=== PATIENT | male | born 1955 | race Caucasian/White ===

== ENCOUNTER 2018-07-30 17:15 | Emergency (ER) | payer MEDICARE, OTHER ==
[~2018-07-30] VITALS: Ht 172.7 cm; Wt 54.0 kg
[2018-07-30 19:15] LABS: BASOPHILS # (AUTO) 0.1 X10'3 (0-0.2); BASOPHILS % (AUTO) 0.9 % (0-1); EOSINOPHILS # (AUTO) 0.1 X10'3 (0-0.9); EOSINOPHILS % (AUTO) 1.4 % (0-6); HEMATOCRIT 47.9 % (42.0-52.0); HEMOGLOBIN 16.1 g/dl (14.0-17.9); LYMPHOCYTES # (AUTO) 2.3 X10'3 (1.1-4.8); LYMPHOCYTES % (AUTO) 30.8 % (21-51); MEAN CORPUSCULAR HEMOGLOBIN 32.2 PG (27.0-31.0); MEAN CORPUSCULAR HGB CONC 33.6 g/dL (33.0-36.5); MEAN CORPUSCULAR VOLUME 95.9 FL (78-98); MONOCYTES # (AUTO) 1.2 X10'3 (0-0.9); MONOCYTES % (AUTO) 15.7 % (2-12); NEUTROPHILS # (AUTO) 3.8 X10'3 (1.8-7.7); NEUTROPHILS % (AUTO) 51.2 % (42-75); PLATELET COUNT 153 X10'3 (140-440); RED BLOOD COUNT 4.99 X10'6 (4.70-6.10); RED CELL DISTRIBUTION WIDTH 14.9 % (11.5-14.5); WHITE BLOOD COUNT 7.4 X10'3 (4.5-11.0)
[2018-07-30 19:32] LABS: ALANINE AMINOTRANSFERASE 55 U/L (12-78); ALBUMIN/GLOBULIN RATIO 1.1 (1.1-1.5); ALKALINE PHOSPHATASE 94 IU/L (46-116); ANION GAP 13 (8-16); ASPARTATE AMINO TRANSFERASE 83 U/L (10-37); BILIRUBIN,TOTAL 0.9 MG/DL (0.1-1.0); BLOOD UREA NITROGEN 3 MG/DL (7-18); BUN/CREATININE RATIO 3.7 (5.4-32.0); CALCIUM 8.9 MG/DL (8.5-10.1); CHLORIDE 101 MMOL/L (99-107); CREATININE 0.81 MG/DL (0.60-1.10); GLUCOSE 88 MG/DL (70-104); INR 1.2 INR; PARTIAL THROMBOPLASTIN TIME 28 SECONDS (22-32); POTASSIUM 3.6 MMOL/L (3.5-5.1); PROTHROMBIN TIME 11.8 SECONDS (9.0-12.0); SODIUM 139 MMOL/L (135-145); TOTAL CARBON DIOXIDE 24.8 MMOL/L (24-32); TOTAL PROTEIN 7.7 G/DL (6.4-8.2); eGFR > 90 ML/MIN
[2018-07-30 20:25] LABS: TOTAL CELLS COUNTED 100
[2018-07-30 20:26] LABS: LARGE PLATELETS FEW; PLATELET ESTIMATE NORMAL
--- NOTE | 2018-07-30 20:27 | NUR ---
Patient was sent from PCP's office for Afib w/RVR, he is asymtomatic at this time. The patient is A&O x4, BU[place] and is appropriate with his daughter at bedside. His current rhythm is afibe with a controlled rate. I will continue to monitor.
[2018-07-30] MEDS ORDERED: aspirin 325mg tablet PO STA (21:23)
[2018-07-30 21:25] VITALS: BP 133/81
== END 2018-07-30 21:31 | disposition home or self-care (01) ==
LOC: ER 17:15
DX: I48.91 Unspecified atrial fibrillation (principal); I50.9 Heart failure, unspecified; Z90.49 Acquired absence of other specified parts of digestive tract
CPT/HCPCS: 36415; 71045; 80053; 84484; 85025; 85610; 85730; 93005; 99284

== ENCOUNTER 2018-09-27 14:33 | Inpatient (IN) | payer MEDICARE, OTHER | END 2018-10-01 12:50 | disposition home or self-care (01) | LOC: ER 14:33 → PCU 3S 09-28 12:50 → ED HOLD 20:59 | PROC: 0W3P8ZZ Control Bleeding in Gastrointestinal Tract, Via Natural or Artificial Opening Endoscopic (ICD-10-PCS; principal; ~2018-09-27) | DX: K92.2 Gastrointestinal hemorrhage, unspecified (principal); D62 Acute posthemorrhagic anemia; I48.91 Unspecified atrial fibrillation ==

== ENCOUNTER 2020-07-07 18:12 | Emergency (ER) | payer MEDICARE ==
[~2020-07-07] VITALS: Ht 170.2 cm; Wt 63.5 kg
[~2020-07-07 18:12] MED LIST: ASCO500C18 PO; FOLI1TAB16 PO; METO-395 PO; MULT-933 PO; PANT40TA54 PO; thiamine tablet PO
--- NOTE | 2020-07-07 18:27 | NUR ---
DR PHELAN NOTIFIED OF PT NECK PAIN AND LOC WITH FALL. PT PLACED IN C COLLAR
[2020-07-07] MEDS ORDERED: LIDOcaine 1% W/epiNEPHrine 1:100,000 20ml vial SQ ONE (19:35)
[2020-07-07] MEDS ORDERED: TETanus/Pertussis (Acell)/Diphther VAC/PF (Tdap-Adult) 0.5ml syringe IMVAC ONE (19:40)
[2020-07-07] MEDS ORDERED: cephalexin 250mg capsule PO ONE (20:30)
[2020-07-07] MEDS ORDERED: HYDROcodone/acetaminophen 10/325mg tab PO ONE (20:30)
[2020-07-07] MEDS ORDERED: CEPH-572 PO (20:43)
[2020-07-07] MEDS ORDERED: HYDR-4353 PO (20:43)
[2020-07-07 21:15] VITALS: BP 158/77
== END 2020-07-07 21:17 | disposition home or self-care (01) ==
LOC: ER 18:12
DX: S01.81XA Laceration without foreign body of other part of head, initial encounter (principal); S00.431A Contusion of right ear, initial encounter; I50.9 Heart failure, unspecified; Z60.2 Problems related to living alone; Z90.49 Acquired absence of other specified parts of digestive tract; Z79.899 Other long term (current) drug therapy; W18.39XA Other fall on same level, initial encounter; Y93.89 Activity, other specified; Y92.89 Other specified places as the place of occurrence of the external cause; Y99.8 Other external cause status
CPT/HCPCS: 12002; 69000; 70450; 72125; 90471; 90715; 99285

== ENCOUNTER 2020-07-24 21:43 | Emergency (ER) | payer MEDICARE ==
[~2020-07-24] VITALS: Ht 170.2 cm; Wt 63.6 kg
[~2020-07-24 21:43] MED LIST changes: +CEPH-572 PO; +HYDR-4353 PO
--- NOTE | 2020-07-24 22:06 | NUR ---
breaking primary RN; will cont to monitor
[2020-07-24] MEDS ORDERED: ondansetron/PF 4mg/2ml inj IV ONE (22:15)
[2020-07-24 22:31] LABS: BASOPHILS # (AUTO) 0.1 X10'3 (0-0.2); BASOPHILS % (AUTO) 1.1 % (0-1); EOSINOPHILS # (AUTO) 0.1 X10'3 (0-0.9); EOSINOPHILS % (AUTO) 0.7 % (0-6); HEMATOCRIT 44.1 % (42.0-52.0); LYMPHOCYTES # (AUTO) 2.8 X10'3 (1.1-4.8); LYMPHOCYTES % (AUTO) 25.3 % (21-51); MEAN CORPUSCULAR HEMOGLOBIN 32.5 PG (27.0-31.0); MEAN CORPUSCULAR VOLUME 95.5 FL (78-98); MEAN PLATELET VOLUME 9.5 FL (7.4-10.4); MONOCYTES # (AUTO) 1.5 X10'3 (0-0.9); MONOCYTES % (AUTO) 13.3 % (2-12); NEUTROPHILS # (AUTO) 6.5 X10'3 (1.8-7.7); NEUTROPHILS % (AUTO) 59.6 % (42-75); PLATELET COUNT 267 X10'3 (140-440); RED BLOOD COUNT 4.61 X10'6 (4.70-6.10); RED CELL DISTRIBUTION WIDTH 13.1 % (11.5-14.5); WHITE BLOOD COUNT 10.9 X10'3 (4.5-11.0)
[2020-07-24] MEDS ORDERED: morphine 4 MG/ML inj SYRINge IV ONE (22:35)
--- NOTE | 2020-07-24 22:40 | NUR ---
PT TO CT. JUST GIVEN MSIV 4 MG . PT WITH 10 OUT OF 10 PAIN TO HIS LLQ
[2020-07-24 22:44] LABS: ALANINE AMINOTRANSFERASE 21 U/L (12-78); ALBUMIN 3.7 G/DL (3.4-5.0); ALBUMIN/GLOBULIN RATIO 0.8 (1.1-1.5); ALKALINE PHOSPHATASE 155 IU/L (46-116); ANION GAP 13 (8-16); ASPARTATE AMINO TRANSFERASE 39 U/L (10-37); BILIRUBIN,TOTAL 0.9 MG/DL (0.1-1.0); BLOOD UREA NITROGEN 11 MG/DL (7-18); BUN/CREATININE RATIO 8.9 (5.4-32.0); CALCIUM 8.9 MG/DL (8.5-10.1); CHLORIDE 99 MMOL/L (99-107); CREATININE 1.24 MG/DL (0.60-1.10); GLUCOSE 129 MG/DL (70-104); LIPASE 89 U/L (73-393); POTASSIUM 3.8 MMOL/L (3.5-5.1); SODIUM 136 MMOL/L (135-145); TOTAL CARBON DIOXIDE 24.3 MMOL/L (24-32); TOTAL PROTEIN 8.2 G/DL (6.4-8.2); eGFR 58 ML/MIN
[2020-07-24 23:02] LABS: CLARITY,URINE CLEAR (Clear); COLOR,URINE YELLOW (Yellow); GLUCOSE, URINE NEGATIVE (Neg); KETONES,URINE TRACE mg/dl (Neg); LEUKOCYTE ESTERASE ,URINE NEGATIVE (Neg); NITRITES, URINE NEGATIVE (Neg); OCCULT BLOOD,URINE NEGATIVE (Neg); PH,URINE 7.5 (4.8-8.0); PROTEIN,URINE NEGATIVE (Neg)
[2020-07-24 23:08] LABS: UA COLLECTION TYPE CLN CATCH MIDSTREAM
[2020-07-24] MEDS ORDERED: ketorolac trometh. 30mg/ml inj. IV ONE (23:15)
[2020-07-25 00:14] VITALS: BP 155/96
[2020-07-25] MEDS ORDERED: NO HOME MEDS (12:25)
== END 2020-07-25 00:15 | disposition home or self-care (01) ==
LOC: ER 21:43
DX: R10.32 Left lower quadrant pain (principal); N28.1 Cyst of kidney, acquired; R11.10 Vomiting, unspecified; Z90.89 Acquired absence of other organs; Z90.49 Acquired absence of other specified parts of digestive tract; Z72.89 Other problems related to lifestyle; Z79.2 Long term (current) use of antibiotics; Z79.899 Other long term (current) drug therapy
CPT/HCPCS: 36415; 74176; 80053; 81003; 83690; 85025; 96374; 96375; 99284; J1885; J2270; J2405

== ENCOUNTER 2021-01-03 20:49 | Emergency (ER) | payer MEDICARE ==
[~2021-01-03] VITALS: Ht 172.7 cm; Wt 63.6 kg
[~2021-01-03 20:49] MED LIST changes: +APIX5TAB3 PO; -ASCO500C18 PO; -CEPH-572 PO; -FOLI1TAB16 PO; -HYDR-4353 PO; -METO-395 PO; +MULT-25 PO; -MULT-933 PO; +PANT-47 PO; -PANT40TA54 PO; +folic acid tablet PO
[2021-01-03 21:27] LABS: BASOPHILS # (AUTO) 0.1 X10'3 (0-0.2); BASOPHILS % (AUTO) 1.3 % (0-1); EOSINOPHILS # (AUTO) 0.2 X10'3 (0-0.9); EOSINOPHILS % (AUTO) 2.7 % (0-6); HEMATOCRIT 34.2 % (42.0-52.0); HEMOGLOBIN 11.3 g/dl (14.0-17.9); LYMPHOCYTES # (AUTO) 2.1 X10'3 (1.1-4.8); LYMPHOCYTES % (AUTO) 33.9 % (21-51); MEAN CORPUSCULAR HEMOGLOBIN 29.3 PG (27.0-31.0); MEAN CORPUSCULAR VOLUME 88.8 FL (78-98); MEAN PLATELET VOLUME 9.9 FL (7.4-10.4); MONOCYTES # (AUTO) 1.3 X10'3 (0-0.9); MONOCYTES % (AUTO) 20.1 % (2-12); NEUTROPHILS # (AUTO) 2.6 X10'3 (1.8-7.7); PLATELET COUNT 100 X10'3 (140-440); RED BLOOD COUNT 3.85 X10'6 (4.70-6.10); RED CELL DISTRIBUTION WIDTH 17.4 % (11.5-14.5); WHITE BLOOD COUNT 6.3 X10'3 (4.5-11.0)
[2021-01-03 21:42] LABS: ALANINE AMINOTRANSFERASE 31 U/L (12-78); ALBUMIN 3.6 G/DL (3.4-5.0); ALKALINE PHOSPHATASE 140 IU/L (46-116); ANION GAP 11 (8-16); ASPARTATE AMINO TRANSFERASE 60 U/L (10-37); BILIRUBIN,TOTAL 1.4 MG/DL (0.1-1.0); BLOOD UREA NITROGEN 8 MG/DL (7-18); CALCIUM 8.7 MG/DL (8.5-10.1); CHLORIDE 94 MMOL/L (99-107); CREATININE 1.33 MG/DL (0.60-1.10); GLUCOSE 90 MG/DL (70-104); POTASSIUM 3.6 MMOL/L (3.5-5.1); SODIUM 128 MMOL/L (135-145); TOTAL CARBON DIOXIDE 22.6 MMOL/L (24-32); TOTAL PROTEIN 7.2 G/DL (6.4-8.2); eGFR 54 ML/MIN
[2021-01-03 21:44] LABS: ETHANOL 0.059 GM/DL (0.0-0.010)
[2021-01-03 22:07] VITALS: BP 130/80
[2021-01-03 22:37] LABS: ANISOCYTOSIS 1+; PLATELET ESTIMATE DECREASED; TOTAL CELLS COUNTED 100
[2021-01-03 22:38] LABS: LARGE PLATELETS FEW; POIKILOCYTOSIS FEW
[2021-01-03 22:39] LABS: SMUDGE CELLS 1+
--- NOTE | 2021-01-03 23:17 | NUR ---
urinal given to pt. Unable to provide urine at this time
[2021-01-04 00:49] LABS: URINE AMPHETAMINE SCREEN NEGATIVE (Neg); URINE BARBITUATE SCREEN NEGATIVE (Neg); URINE BENZODIAZEPINES SCREEN NEGATIVE (Neg); URINE CANNABINOID SCREEN NEGATIVE (Neg); URINE COCAINE SCREEN NEGATIVE (Neg); URINE METHADONE SCREEN NEGATIVE (Neg); URINE OPIATE SCREEN NEGATIVE (Neg); URINE PHENCYCLIDINE SCREEN NEGATIVE (Neg)
--- NOTE | 2021-01-04 01:57 | NUR ---
PT AWAKE RESTING PEACFULLY ON RIGHT SIDE RESP EVEN AND UNLABORED . PT VOIDING OUT PUT 500 ML OFFERED PT 2 WARM BLANKETS . PT POLITE
--- NOTE | 2021-01-04 06:33 | NUR ---
pt using urinal at this time independtly ,no distress noted.will cont to monitor ,sitter chadwick outside the room.
--- NOTE | 2021-01-04 07:36 | NUR ---
pt sleeping in lft lateral position no ditress noted will cont to monitor.
--- NOTE | 2021-01-04 09:50 | NUR ---
PT AMBULATED FROM ROOM 8 TO BED 26. PT BEING OREINTATED TO SURROUNDINGS AND GIVEN WARM BLANKETS.
--- NOTE | 2021-01-04 09:54 | NUR ---
PT MOVED FROM ER BED 8 TO OVERFLOW BED 26.
--- NOTE | 2021-01-04 10:24 | NUR ---
ANGELES SPARKS AT BEDSIDE SPEAKING WITH PT.
--- NOTE | 2021-01-04 11:07 | NUR ---
GAEL CAGLE'S DAUGHTER'S PHONE NUMBER IS [phone]
--- NOTE | 2021-01-04 11:30 | NUR ---
PT INQUIRED IF WE COULD CALL HIS DAUGHTER AT HER WORK. OBTAINED INFO OF WHERE SHE WORKS WAS ABLE TO GET A HOLD OF PTS DAUGHTER GURJIT PEÑALOZA AT HER WORK. [facility] WORKER TO GIVE DAUGHTER A CALL AFTER VERBAL PERMISSION GIVEN BY GURJIT.
--- NOTE | 2021-01-04 12:25 | NUR ---
PER [facility] WORKER [place] PT BEING DC'D AND HIS DAUGHTER WILL BE PICKING HIM UP IN NEXT "COUPLE" OF HOURS DAUGHTER CURRENTLY AT WORK
--- NOTE | 2021-01-04 14:00 | NUR ---
CALLED PTS DAUGHTER, GURJIT CURRENTLY NOT ANSWERING.
--- NOTE | 2021-01-04 14:11 | NUR ---
PTS DAUGHTER CALLED AND REPORTS SHE WILL BE LEAVING WORKIN AND PICKING UP PT "SHORTLY"
== END 2021-01-04 15:14 | disposition home or self-care (01) ==
LOC: ER 20:49
DX: F10.129 Alcohol abuse with intoxication, unspecified (principal); F79 Unspecified intellectual disabilities; I50.9 Heart failure, unspecified; N18.9 Chronic kidney disease, unspecified; Z90.49 Acquired absence of other specified parts of digestive tract; Z72.89 Other problems related to lifestyle; Z79.899 Other long term (current) drug therapy; Y90.2 Blood alcohol level of 40-59 mg/100 ml; R40.4 Transient alteration of awareness
CPT/HCPCS: 36415; 70450; 80053; 80305; 80320; 84443; 85007; 85025; 99285

== ENCOUNTER 2021-09-20 13:43 | Emergency (ER) | payer MEDICARE ==
[~2021-09-20] VITALS: Ht 172.7 cm; Wt 65.8 kg
[~2021-09-20 13:43] MED LIST changes: +CARV6.253 PO; -MULT-25 PO; -PANT-47 PO; -folic acid tablet PO; -thiamine tablet PO
[2021-09-20 15:08] LABS: BASOPHILS # (AUTO) 0.1 X10'3 (0-0.2); BASOPHILS % (AUTO) 1.2 % (0-1); EOSINOPHILS # (AUTO) 0.2 X10'3 (0-0.9); EOSINOPHILS % (AUTO) 2.3 % (0-6); HEMATOCRIT 32.5 % (42.0-52.0); HEMOGLOBIN 10.8 g/dl (14.0-17.9); LYMPHOCYTES # (AUTO) 1.3 X10'3 (1.1-4.8); LYMPHOCYTES % (AUTO) 17.1 % (21-51); MEAN CORPUSCULAR HEMOGLOBIN 29.3 PG (27.0-31.0); MEAN CORPUSCULAR HGB CONC 33.3 g/dL (33.0-36.5); MEAN PLATELET VOLUME 9.6 FL (7.4-10.4); MONOCYTES # (AUTO) 2.3 X10'3 (0-0.9); MONOCYTES % (AUTO) 31.6 % (2-12); NEUTROPHILS # (AUTO) 3.6 X10'3 (1.8-7.7); NEUTROPHILS % (AUTO) 47.8 % (42-75); PLATELET COUNT 190 X10'3 (140-440); RED CELL DISTRIBUTION WIDTH 17.3 % (11.5-14.5); WHITE BLOOD COUNT 7.4 X10'3 (4.5-11.0)
[2021-09-20 15:18] LABS: ALANINE AMINOTRANSFERASE 32 U/L (12-78); ALBUMIN 2.8 G/DL (3.4-5.0); ALBUMIN/GLOBULIN RATIO 0.7 (1.1-1.5); ALKALINE PHOSPHATASE 121 IU/L (46-116); ANION GAP 12 (8-16); ASPARTATE AMINO TRANSFERASE 69 U/L (10-37); BILIRUBIN,TOTAL 0.9 MG/DL (0.1-1.0); BLOOD UREA NITROGEN 9 MG/DL (7-18); BUN/CREATININE RATIO 9.7 (5.4-32.0); CALCIUM 8.3 MG/DL (8.5-10.1); CHLORIDE 103 MMOL/L (99-107); CREATININE 0.93 MG/DL (0.60-1.10); GLUCOSE 66 MG/DL (70-104); POTASSIUM 3.4 MMOL/L (3.5-5.1); SODIUM 139 MMOL/L (135-145); TOTAL CARBON DIOXIDE 24.5 MMOL/L (24-32); TOTAL PROTEIN 6.6 G/DL (6.4-8.2); eGFR 81 ML/MIN
[2021-09-20 15:28] LABS: TOTAL CELLS COUNTED 100
[2021-09-20 15:29] LABS: ANISOCYTOSIS 1+; LARGE PLATELETS FEW; PLATELET ESTIMATE NORMAL
[2021-09-20] MEDS ORDERED: potassium Cl 20 mEq SR tablet PO ONE (17:00)
[2021-09-20] MEDS ORDERED: furosemide 20MG tablet PO ONE (17:00)
[2021-09-20 18:27] VITALS: BP 124/79
== END 2021-09-20 18:46 | disposition home or self-care (01) ==
LOC: ER 13:43
DX: R60.0 Localized edema (principal); I50.9 Heart failure, unspecified; I48.91 Unspecified atrial fibrillation; K70.30 Alcoholic cirrhosis of liver without ascites; N18.9 Chronic kidney disease, unspecified; Z90.49 Acquired absence of other specified parts of digestive tract; Z72.89 Other problems related to lifestyle; Z79.899 Other long term (current) drug therapy; Z79.01 Long term (current) use of anticoagulants
CPT/HCPCS: 36415; 71045; 80053; 83880; 84484; 85007; 85025; 93005; 99285

== ENCOUNTER 2022-01-15 16:05 | Emergency (ER) | payer MEDICARE ==
[~2022-01-15] VITALS: Ht 172.7 cm; Wt 51.8 kg
[2022-01-15] MEDS ORDERED: normal saline 1000ML IV soln IV ONE (16:50)
[2022-01-15 17:03] LABS: BASOPHILS # (AUTO) 0.1 X10'3 (0-0.2); BASOPHILS % (AUTO) 1.2 % (0-1); EOSINOPHILS # (AUTO) 0.1 X10'3 (0-0.9); EOSINOPHILS % (AUTO) 0.8 % (0-6); HEMATOCRIT 33.6 % (42.0-52.0); LYMPHOCYTES # (AUTO) 2.2 X10'3 (1.1-4.8); LYMPHOCYTES % (AUTO) 31.4 % (21-51); MEAN CORPUSCULAR HEMOGLOBIN 25.4 PG (27.0-31.0); MEAN CORPUSCULAR HGB CONC 32.8 g/dL (33.0-36.5); MEAN CORPUSCULAR VOLUME 77.5 FL (78-98); MEAN PLATELET VOLUME 9.1 FL (7.4-10.4); MONOCYTES # (AUTO) 1.3 X10'3 (0-0.9); MONOCYTES % (AUTO) 19.5 % (2-12); NEUTROPHILS # (AUTO) 3.2 X10'3 (1.8-7.7); NEUTROPHILS % (AUTO) 47.1 % (42-75); PLATELET COUNT 240 X10'3 (140-440); RED BLOOD COUNT 4.33 X10'6 (4.70-6.10); RED CELL DISTRIBUTION WIDTH 17.8 % (11.5-14.5); WHITE BLOOD COUNT 6.9 X10'3 (4.5-11.0)
[2022-01-15 17:17] LABS: ALANINE AMINOTRANSFERASE 30 U/L (12-78); ALBUMIN 3.4 G/DL (3.4-5.0); ALBUMIN/GLOBULIN RATIO 0.8 (1.1-1.5); ALKALINE PHOSPHATASE 124 IU/L (46-116); ANION GAP 16 (8-16); ASPARTATE AMINO TRANSFERASE 68 U/L (10-37); BILIRUBIN,TOTAL 1.8 MG/DL (0.1-1.0); BLOOD UREA NITROGEN 10 MG/DL (7-18); BUN/CREATININE RATIO 8.1 (5.4-32.0); CALCIUM 8.9 MG/DL (8.5-10.1); CHLORIDE 91 MMOL/L (99-107); CREATININE 1.23 MG/DL (0.60-1.10); ETHANOL < 0.010 GM/DL (0.0-0.010); GLUCOSE 90 MG/DL (70-104); SODIUM 133 MMOL/L (135-145); TOTAL CARBON DIOXIDE 26.5 MMOL/L (24-32); TOTAL PROTEIN 7.6 G/DL (6.4-8.2); eGFR 59 ML/MIN
[2022-01-15 17:21] LABS: POTASSIUM 2.7 MMOL/L (3.5-5.1)
--- NOTE | 2022-01-15 17:21 | NUR ---
k 2.7 reported to er
[2022-01-15] MEDS ORDERED: POTASSIUM BICARB 20meq eff tab 20 MEQ TABLET.EFF PO ONE (17:25)
[2022-01-15 17:26] LABS: APTT 30 SECONDS (22-32)
[2022-01-15 17:27] LABS: ANISOCYTOSIS 1+; MICROCYTOSIS 1+; PLATELET ESTIMATE NORMAL; POIKILOCYTOSIS FEW; POLYCHROMASIA FEW; TARGET CELLS 1+
[2022-01-15 17:28] LABS: ELLIPTOCYTES FEW
--- NOTE | 2022-01-15 18:14 | NUR ---
Recieved report from Damaris, noted laceration to left eye without active bleeding.
--- NOTE | 2022-01-15 18:34 | NUR ---
Report given to Kristi.
[2022-01-15] MEDS ORDERED: potassium Cl 10 mEq/100mL bag IV ONE (20:10)
[2022-01-15] MEDS ORDERED: CefTRIAXone 2gm/D5W 50ml BAG 50 ML IV ONE (20:10)
[2022-01-15] MEDS ORDERED: ondansetron/PF 4mg/2ml inj IV ONE (20:10)
[2022-01-15] MEDS ORDERED: folic acid 1mg/0.2ml inj IV ONE (21:55)
[2022-01-15] MEDS ORDERED: thiamine 100mg/ml 2ml inj. IV ONE (21:55)
[2022-01-15] MEDS ORDERED: normal saline 1000ML IV soln IVB ONE (21:55)
[2022-01-15 22:45] VITALS: BP 117/66
== END 2022-01-15 23:19 | disposition home or self-care (01) ==
LOC: ER 16:07
DX: S09.90XA Unspecified injury of head, initial encounter (principal); F10.20 Alcohol dependence, uncomplicated; T51.0X1A Toxic effect of ethanol, accidental (unintentional), initial encounter; Y90.9 Presence of alcohol in blood, level not specified; I95.9 Hypotension, unspecified; R19.7 Diarrhea, unspecified; E87.1 Hypo-osmolality and hyponatremia; E86.0 Dehydration; W19.XXXA Unspecified fall, initial encounter; Y93.89 Activity, other specified; Y92.89 Other specified places as the place of occurrence of the external cause; Y99.8 Other external cause status
CPT/HCPCS: 36415; 70450; 72125; 80053; 80320; 83605; 84145; 85008; 85025; 85610; 85730; 87040; 93005; 96361; 96365; 96375; 99285; J0696; J2405; J3411; J3480; J3490; J7030; 80305

== ENCOUNTER 2022-01-18 09:31 | Emergency (ER) | payer MEDICARE ==
[~2022-01-18] VITALS: Ht 172.7 cm; Wt 54.5 kg
--- NOTE | 2022-01-18 09:48 | NUR ---
levi fonseca made aware of pt triage
[2022-01-18] MEDS ORDERED: thiamine 100mg/ml 2ml inj. IV ONE (10:00)
[2022-01-18] MEDS ORDERED: normal saline 1000ML IV soln IVB ONE (10:00)
[2022-01-18 10:36] LABS: BASOPHILS # (AUTO) 0.1 X10'3 (0-0.2); BASOPHILS % (AUTO) 1.2 % (0-1); EOSINOPHILS # (AUTO) 0.1 X10'3 (0-0.9); EOSINOPHILS % (AUTO) 1.6 % (0-6); HEMATOCRIT 31.8 % (42.0-52.0); HEMOGLOBIN 10.2 g/dl (14.0-17.9); LYMPHOCYTES # (AUTO) 1.5 X10'3 (1.1-4.8); LYMPHOCYTES % (AUTO) 22.4 % (21-51); MEAN CORPUSCULAR HEMOGLOBIN 25.2 PG (27.0-31.0); MEAN CORPUSCULAR HGB CONC 32.2 g/dL (33.0-36.5); MEAN CORPUSCULAR VOLUME 78.2 FL (78-98); MONOCYTES # (AUTO) 1.2 X10'3 (0-0.9); MONOCYTES % (AUTO) 18.5 % (2-12); NEUTROPHILS # (AUTO) 3.8 X10'3 (1.8-7.7); NEUTROPHILS % (AUTO) 56.3 % (42-75); PLATELET COUNT 228 X10'3 (140-440); RED BLOOD COUNT 4.07 X10'6 (4.70-6.10); WHITE BLOOD COUNT 6.7 X10'3 (4.5-11.0)
[2022-01-18 10:51] LABS: BILIRUBIN,TOTAL 1.2 MG/DL (0.1-1.0)
[2022-01-18 10:55] LABS: LACTIC SEPSIS 2.3 MMOL/L (0.4-2.0)
[2022-01-18 11:00] LABS: ALANINE AMINOTRANSFERASE 26 U/L (12-78); ALBUMIN 2.7 G/DL (3.4-5.0); ALBUMIN/GLOBULIN RATIO 0.7 (1.1-1.5); ALKALINE PHOSPHATASE 116 IU/L (46-116); ANION GAP 13 (8-16); ASPARTATE AMINO TRANSFERASE 61 U/L (10-37); BLOOD UREA NITROGEN 5 MG/DL (7-18); BUN/CREATININE RATIO 4.2 (5.4-32.0); CHLORIDE 96 MMOL/L (99-107); CREATININE 1.18 MG/DL (0.60-1.10); ETHANOL < 0.010 GM/DL (0.0-0.010); GLUCOSE 97 MG/DL (70-104); SODIUM 135 MMOL/L (135-145); TOTAL CARBON DIOXIDE 25.8 MMOL/L (24-32); TOTAL PROTEIN 6.6 G/DL (6.4-8.2); eGFR 61 ML/MIN
[2022-01-18 11:05] LABS: POTASSIUM 2.9 MMOL/L (3.5-5.1)
[2022-01-18 11:25] LABS: ANISOCYTOSIS 1+; MICROCYTOSIS 1+; PLATELET ESTIMATE NORMAL; TOTAL CELLS COUNTED 100
[2022-01-18 11:26] LABS: LARGE PLATELETS FEW; TARGET CELLS FEW
[2022-01-18 11:27] LABS: SMUDGE CELLS 1+
[2022-01-18] MEDS ORDERED: potassium Cl 20 mEq SR tablet PO ONE (11:30)
[2022-01-18] MEDS ORDERED: iohexol 350MG/ML 100ml bottle IV ONE (11:34)
[2022-01-18 13:30] VITALS: BP 106/61
== END 2022-01-18 14:16 | disposition home or self-care (01) ==
LOC: ER 09:32
DX: S60.222A Contusion of left hand, initial encounter (principal); S60.221A Contusion of right hand, initial encounter; M54.9 Dorsalgia, unspecified; I13.0 Hypertensive heart and chronic kidney disease with heart failure and stage 1 through stage 4 chronic kidney disease, or unspecified chronic kidney disease; N18.9 Chronic kidney disease, unspecified; Z87.19 Personal history of other diseases of the digestive system; Z79.899 Other long term (current) drug therapy; W18.39XA Other fall on same level, initial encounter; Y93.89 Activity, other specified; Y92.89 Other specified places as the place of occurrence of the external cause; Y99.8 Other external cause status
CPT/HCPCS: 36415; 70450; 71045; 71260; 73130; 74177; 80053; 80320; 82140; 83605; 83735; 84484; 85007; 85025; 87040; 93005; 96361; 96374; 99285; J3411; J3490; J7030; Q9967

== ENCOUNTER 2022-01-20 09:38 | Emergency (ER) | payer MEDICARE ==
[~2022-01-20] VITALS: Ht 172.7 cm; Wt 59.1 kg
[2022-01-20 09:39] VITALS: BP 81/48
[2022-01-20 10:26] LABS: ALANINE AMINOTRANSFERASE 22 U/L (12-78); ALBUMIN 2.7 G/DL (3.4-5.0); ALBUMIN/GLOBULIN RATIO 0.7 (1.1-1.5); ALKALINE PHOSPHATASE 119 IU/L (46-116); ANION GAP 14 (8-16); ASPARTATE AMINO TRANSFERASE 54 U/L (10-37); BILIRUBIN,TOTAL 1.3 MG/DL (0.1-1.0); BLOOD UREA NITROGEN 5 MG/DL (7-18); BUN/CREATININE RATIO 4.5 (5.4-32.0); CALCIUM 7.9 MG/DL (8.5-10.1); CHLORIDE 100 MMOL/L (99-107); CREATININE 1.12 MG/DL (0.60-1.10); GLUCOSE 94 MG/DL (70-104); POTASSIUM 3.1 MMOL/L (3.5-5.1); SODIUM 137 MMOL/L (135-145); TOTAL CARBON DIOXIDE 23.1 MMOL/L (24-32); TOTAL PROTEIN 6.7 G/DL (6.4-8.2); eGFR 65 ML/MIN
[2022-01-20] MEDS ORDERED: normal saline 1000ml 1,000 ML IV ONE (11:00)
[2022-01-20] MEDS ORDERED: HYDROcodone/acetaminophen 10/325mg tab PO ONE (11:15)
[2022-01-20] MEDS ORDERED: potassium Cl 20 mEq SR tablet PO ONE (11:15)
[2022-01-20 11:23] LABS: BASOPHILS # (AUTO) 0.2 X10'3 (0-0.2); BASOPHILS % (AUTO) 2.7 % (0-1); EOSINOPHILS # (AUTO) 0.3 X10'3 (0-0.9); EOSINOPHILS % (AUTO) 4.2 % (0-6); HEMATOCRIT 30.3 % (42.0-52.0); HEMOGLOBIN 9.7 g/dl (14.0-17.9); LYMPHOCYTES # (AUTO) 1.4 X10'3 (1.1-4.8); MEAN CORPUSCULAR HEMOGLOBIN 25.3 PG (27.0-31.0); MEAN CORPUSCULAR VOLUME 79.2 FL (78-98); MEAN PLATELET VOLUME 8.9 FL (7.4-10.4); MONOCYTES # (AUTO) 1.1 X10'3 (0-0.9); MONOCYTES % (AUTO) 17.5 % (2-12); NEUTROPHILS # (AUTO) 3.4 X10'3 (1.8-7.7); NEUTROPHILS % (AUTO) 53.6 % (42-75); PLATELET COUNT 193 X10'3 (140-440); RED BLOOD COUNT 3.83 X10'6 (4.70-6.10); RED CELL DISTRIBUTION WIDTH 18.3 % (11.5-14.5); WHITE BLOOD COUNT 6.4 X10'3 (4.5-11.0)
[2022-01-20 11:34] LABS: CLARITY,URINE CLEAR (Clear); COLOR,URINE YELLOW (Yellow); GLUCOSE, URINE 100 mg/dl (Neg); KETONES,URINE 40 mg/dl (Neg); LEUKOCYTE ESTERASE ,URINE NEGATIVE (Neg); NITRITES, URINE NEGATIVE (Neg); OCCULT BLOOD,URINE NEGATIVE (Neg); PROTEIN,URINE NEGATIVE (Neg)
[2022-01-20 11:35] LABS: UA COLLECTION TYPE NON-SPECIFIED
[2022-01-20 11:37] LABS: MAGNESIUM 1.3 MG/DL (1.5-2.4)
[2022-01-20 11:43] LABS: PLATELET ESTIMATE NORMAL; TOTAL CELLS COUNTED 100
[2022-01-20 11:44] LABS: ANISOCYTOSIS 1+; MICROCYTOSIS 1+; TARGET CELLS FEW
[2022-01-20 11:45] LABS: ELLIPTOCYTES FEW; SMUDGE CELLS 1+
[2022-01-20 11:47] LABS: HYPERSEGMENTED NEUTROPHILS FEW
[2022-01-20] MEDS ORDERED: acetaminophen 325mg tablet PO ONE (12:50)
[2022-01-20] MEDS ORDERED: LIDO1ADH58 TOP (16:42)
== END 2022-01-20 14:36 | disposition home or self-care (01) ==
LOC: ER 09:39
DX: S60.221D Contusion of right hand, subsequent encounter (principal); I11.0 Hypertensive heart disease with heart failure; I13.0 Hypertensive heart and chronic kidney disease with heart failure and stage 1 through stage 4 chronic kidney disease, or unspecified chronic kidney disease; N18.9 Chronic kidney disease, unspecified; Z87.19 Personal history of other diseases of the digestive system; Y92.89 Other specified places as the place of occurrence of the external cause; W19.XXXD Unspecified fall, subsequent encounter; Z79.899 Other long term (current) drug therapy
CPT/HCPCS: 36415; 71045; 80053; 81003; 83605; 83735; 84145; 85007; 85025; 87040; 87077; 87186; J7030

== ENCOUNTER 2022-01-20 15:58 | Emergency (ER) | payer MEDICARE ==
[~2022-01-20] VITALS: Ht 172.7 cm; Wt 59.1 kg
[2022-01-20 16:17] VITALS: BP 98/50
[2022-01-20] MEDS ORDERED: HYDROcodone/acetaminophen 5mg/325mg tablet PO ONE (16:35)
[2022-01-20] MEDS ORDERED: LIDOcaine 5% patch TP STA (16:35)
[2022-01-20] MEDS ORDERED: LIDO1ADH58 TOP (16:42)
== END 2022-01-20 18:16 | disposition home or self-care (01) ==
LOC: ER 15:59
DX: M54.59 Other low back pain (principal); I13.2 Hypertensive heart and chronic kidney disease with heart failure and with stage 5 chronic kidney disease, or end stage renal disease; N18.6 End stage renal disease; I50.9 Heart failure, unspecified; Z90.49 Acquired absence of other specified parts of digestive tract; Z79.899 Other long term (current) drug therapy
CPT/HCPCS: 99284

== ENCOUNTER 2022-01-21 13:02 | Emergency (ER) | payer MEDICARE ==
[~2022-01-21] VITALS: Ht 172.7 cm; Wt 59.0 kg
[~2022-01-21 13:02] MED LIST changes: +LIDO1ADH58 TOP
--- NOTE | 2022-01-21 13:15 | NUR ---
C COLLAR PLACED D/T NECK PAIN S/P FALL.
[2022-01-21 15:50] VITALS: BP 114/65
--- NOTE | 2022-01-21 17:12 | NUR ---
Spoke to Melissa/child, gave her an update regarding patient's dc instructions and that pt could benefit from SS worker. Daughter said pt has appt with Dr. Quevedo next week and will accompany pt to his appt. Correct address given to registration[id number] [id number].
[2022-01-22] MEDS ORDERED: FURO20TA4 PO (00:04)
[2022-01-22] MEDS ORDERED: NALT50TA PO (00:04)
== END 2022-01-21 15:46 | disposition home or self-care (01) ==
LOC: ER 13:03
DX: S30.1XXA Contusion of abdominal wall, initial encounter (principal); S60.512A Abrasion of left hand, initial encounter; S60.511A Abrasion of right hand, initial encounter; S80.212A Abrasion, left knee, initial encounter; S80.211A Abrasion, right knee, initial encounter; M54.2 Cervicalgia; R41.82 Altered mental status, unspecified; R00.1 Bradycardia, unspecified; W18.39XA Other fall on same level, initial encounter; Y93.89 Activity, other specified; Y92.89 Other specified places as the place of occurrence of the external cause; Y99.8 Other external cause status
CPT/HCPCS: 70450; 72125

== ENCOUNTER 2022-01-21 18:08 | Inpatient (IN) | payer MEDICARE ==
[~2022-01-21] VITALS: Ht 172.7 cm; Wt 59.0 kg
[2022-01-21] MEDS ORDERED: thiamine 100mg/ml 2ml inj. IV ONE (19:45)
[2022-01-21] MEDS ORDERED: normal saline 1000ML IV soln IVB ONE (19:45)
[2022-01-21 20:29] LABS: BASOPHILS # (AUTO) 0.1 X10'3 (0-0.2); BASOPHILS % (AUTO) 1.5 % (0-1); EOSINOPHILS # (AUTO) 0.2 X10'3 (0-0.9); EOSINOPHILS % (AUTO) 3.4 % (0-6); HEMATOCRIT 27.2 % (42.0-52.0); HEMOGLOBIN 8.8 g/dl (14.0-17.9); LYMPHOCYTES % (AUTO) 28.5 % (21-51); MEAN CORPUSCULAR HEMOGLOBIN 25.2 PG (27.0-31.0); MEAN CORPUSCULAR HGB CONC 32.2 g/dL (33.0-36.5); MEAN CORPUSCULAR VOLUME 78.3 FL (78-98); MEAN PLATELET VOLUME 8.6 FL (7.4-10.4); MONOCYTES # (AUTO) 1.4 X10'3 (0-0.9); MONOCYTES % (AUTO) 19.6 % (2-12); NEUTROPHILS # (AUTO) 3.3 X10'3 (1.8-7.7); PLATELET COUNT 213 X10'3 (140-440); RED BLOOD COUNT 3.48 X10'6 (4.70-6.10); RED CELL DISTRIBUTION WIDTH 18.4 % (11.5-14.5); WHITE BLOOD COUNT 6.9 X10'3 (4.5-11.0)
[2022-01-21 20:44] LABS: APTT 31 SECONDS (22-32)
[2022-01-21 20:51] LABS: LACTIC SEPSIS 1.3 MMOL/L (0.4-2.0)
[2022-01-21 20:58] LABS: ALANINE AMINOTRANSFERASE 20 U/L (12-78); ALBUMIN 2.8 G/DL (3.4-5.0); ALBUMIN/GLOBULIN RATIO 0.8 (1.1-1.5); ALKALINE PHOSPHATASE 114 IU/L (46-116); ANION GAP 14 (8-16); ASPARTATE AMINO TRANSFERASE 49 U/L (10-37); BILIRUBIN,TOTAL 1.3 MG/DL (0.1-1.0); BLOOD UREA NITROGEN 7 MG/DL (7-18); BUN/CREATININE RATIO 6.1 (5.4-32.0); CALCIUM 7.9 MG/DL (8.5-10.1); CHLORIDE 100 MMOL/L (99-107); CREATININE 1.14 MG/DL (0.60-1.10); GLUCOSE 73 MG/DL (70-104); MAGNESIUM 1.2 MG/DL (1.5-2.4); POTASSIUM 3.2 MMOL/L (3.5-5.1); SODIUM 137 MMOL/L (135-145); TOTAL CARBON DIOXIDE 23.5 MMOL/L (24-32); TOTAL PROTEIN 6.5 G/DL (6.4-8.2); eGFR 64 ML/MIN
--- NOTE | 2022-01-21 21:00 | NUR ---
ASSUMED CARE OF PT. AWAKE AND ALERT. PLAN OF CARE DISCUSSED WITH PT. VERBELIZED UNDRSTANDING. DENIES PAIN OR DISCOMFORT AT THIS TIME. WILL MONITOR.
--- NOTE | 2022-01-21 21:00 | NUR ---
PT REFUSED TO GET INTO GOWN. STATES HE FEEL WARMER WITH OWN CLOTHES.
[2022-01-21 21:08] LABS: ETHANOL < 0.010 GM/DL (0.0-0.010)
[2022-01-21 21:09] LABS: AMMONIA < 10 UMOL/L (11-32)
[2022-01-21] MEDS ORDERED: potassium Cl 20 mEq SR tablet PO ONE (21:15)
[2022-01-21] MEDS: magnesium 2GM in 50ml NS 50 ML IV SCH ×2 (21:59→23:08)
[2022-01-21] MEDS ORDERED: magnesium Cl slow-release 64mg tablet PO PRN (22:35)
[2022-01-21] MEDS ORDERED: magnesium 4gm in 100ml NS 100 ML IV PRN (22:35)
[2022-01-21] MEDS ORDERED: magnesium hydroxide 30ml (MOM) UD suspension PO PRN (22:35)
[2022-01-21] MEDS ORDERED: POTASSIUM BICARB 20meq eff tab 20 MEQ TABLET.EFF PO PRN (22:35)
[2022-01-21] MEDS ORDERED: acetaminophen 325mg tablet PO PRN (22:35)
[2022-01-21] MEDS ORDERED: mag hydrox/Alum hydrox/simeth 30ml oral suspension PO PRN (22:35)
[2022-01-21] MEDS ORDERED: magnesium 2GM in 50ml NS 50 ML IV PRN (22:35)
[2022-01-21] MEDS ORDERED: potassium CL 10mEq/100ml bag 100 ML IV PRN (22:35)
[2022-01-21] MEDS: HYDROcodone/acetaminophen 5mg/325mg tablet PO PRN (23:13)
[2022-01-21 23:24] LABS: CLARITY,URINE CLEAR (Clear); COLOR,URINE YELLOW (Yellow); GLUCOSE, URINE NEGATIVE (Neg); KETONES,URINE 40 mg/dl (Neg); LEUKOCYTE ESTERASE ,URINE NEGATIVE (Neg); NITRITES, URINE NEGATIVE (Neg); OCCULT BLOOD,URINE NEGATIVE (Neg); PROTEIN,URINE NEGATIVE (Neg)
[2022-01-21 23:29] LABS: UA COLLECTION TYPE NON-SPECIFIED
[2022-01-22] MEDS ORDERED: FURO20TA4 PO (00:04)
[2022-01-22] MEDS ORDERED: NALT50TA PO (00:04)
[2022-01-22] MEDS: apixaban 5mg tablet PO SCH ×2 (07:46→19:17)
[2022-01-22] MEDS: docusate sod 100mg capsule PO SCH ×2 (07:47→19:16)
[2022-01-22] MEDS: K and/or MAG REPLACEMENT MC SCH ×2 (07:47→20:00)
[2022-01-22] MEDS: LIDOcaine 5% patch TP SCH (07:49)
[2022-01-22] MEDS ORDERED: apixaban 5mg tablet PO SCH (08:00)
--- NOTE | 2022-01-22 08:20 | NUR ---
Pt is awake alert and orientedx4. On room air, no form of distress. SB on monitor, hr in 50s. and upto 60s with activity. bp has been stable. pt's only concern was his back pain. Lidocaine patch applied. will continue to monitor
[2022-01-22 08:38] LABS: BASOPHILS # (AUTO) 0.1 X10'3 (0-0.2); EOSINOPHILS # (AUTO) 0.2 X10'3 (0-0.9); LYMPHOCYTES # (AUTO) 1.8 X10'3 (1.1-4.8); MEAN CORPUSCULAR HGB CONC 32.2 g/dL (33.0-36.5); MONOCYTES % (AUTO) 17.7 % (2-12); NEUTROPHILS # (AUTO) 2.7 X10'3 (1.8-7.7); WHITE BLOOD COUNT 5.9 X10'3 (4.5-11.0)
[2022-01-22 08:40] LABS: BASOPHILS % (AUTO) 2.4 % (0-1); EOSINOPHILS % (AUTO) 3.9 % (0-6); HEMATOCRIT 27.8 % (42.0-52.0); LYMPHOCYTES % (AUTO) 30.9 % (21-51); MEAN CORPUSCULAR HEMOGLOBIN 25.5 PG (27.0-31.0); MEAN CORPUSCULAR VOLUME 79.2 FL (78-98); NEUTROPHILS % (AUTO) 45.1 % (42-75); PLATELET COUNT 206 X10'3 (140-440); RED BLOOD COUNT 3.52 X10'6 (4.70-6.10); RED CELL DISTRIBUTION WIDTH 18.4 % (11.5-14.5)
[2022-01-22 08:57] LABS: ALANINE AMINOTRANSFERASE 17 U/L (12-78); ALBUMIN 2.5 G/DL (3.4-5.0); ALBUMIN/GLOBULIN RATIO 0.7 (1.1-1.5); ALKALINE PHOSPHATASE 113 IU/L (46-116); ANION GAP 16 (8-16); ASPARTATE AMINO TRANSFERASE 40 U/L (10-37); BILIRUBIN,TOTAL 1.1 MG/DL (0.1-1.0); BLOOD UREA NITROGEN 7 MG/DL (7-18); CALCIUM 8.1 MG/DL (8.5-10.1); CHLORIDE 102 MMOL/L (99-107); GLUCOSE 66 MG/DL (70-104); MAGNESIUM 2.3 MG/DL (1.5-2.4); POTASSIUM 3.8 MMOL/L (3.5-5.1); SODIUM 138 MMOL/L (135-145); TOTAL PROTEIN 6.1 G/DL (6.4-8.2); eGFR 74 ML/MIN
--- NOTE | 2022-01-22 10:45 | NUR ---
Pt's HR 43 on monitor, however its not sustaining and he denied any discomfort at this time. Paged Dr Zayas rergarding pt's low HR to 40s. Awaiting call back
--- NOTE | 2022-01-22 11:10 | NUR ---
Spoke to Dr Zayas, will be at bediside soon to eval pt
[2022-01-22 15:39] VITALS: BP 103/50
[2022-01-22 18:00] VITALS: BP 116/59
--- NOTE | 2022-01-22 18:58 | NUR ---
Patient in room ORTHO 4009. I have received report from NATALYA WOODRUFF and had the opportunity to ask questions and assume patient care.
--- NOTE | 2022-01-22 20:52 | NUR ---
I moved patient to bed A since he got up on his own and took his TABS alarm with him so no alarm went off and nursing project coordinator saw him out of bed and walked him to the bathroom. 4009A has a working bed alarm at this time for safety.
[2022-01-22] MEDS ORDERED: LORazepam 1 MG tablet PO PRN (21:25)
[2022-01-22] MEDS: LORazepam 2 mg/ml vial IV PRN (21:56)
[2022-01-22 22:00] VITALS: BP 108/66
--- NOTE | 2022-01-22 22:08 | NUR ---
PATIENT CONFUSED, THINKS HE IS HOME AND IN THE HOSPITAL AT THE SAME TIME. MUCH MORE CONFUSED IN THE LAST COUPLE OF HOURS. ASKED IF I WOULD JUST GET HIM A BEER HE ISN'T LIKING THE WATER MUCH. RC'D ORDERS FOR ETOH WD AND ADMINISTERED 2MG ATIVAN. PATIENT IN SIGHT OF NURSES STATION AND IN AN ALARM BED WITH TABS IN USE ALSO. WILL MONITOR CLOSELY.
[2022-01-23] MEDS: LORazepam 2 mg/ml vial IV PRN ×3 (04:56→15:34)
[2022-01-23 06:00] VITALS: BP 127/74
[2022-01-23 06:35] LABS: ALANINE AMINOTRANSFERASE 13 U/L (12-78); ALBUMIN 2.4 G/DL (3.4-5.0); ALBUMIN/GLOBULIN RATIO 0.7 (1.1-1.5); ALKALINE PHOSPHATASE 112 IU/L (46-116); ANION GAP 6 (8-16); ASPARTATE AMINO TRANSFERASE 36 U/L (10-37); BILIRUBIN,TOTAL 0.7 MG/DL (0.1-1.0); BLOOD UREA NITROGEN 9 MG/DL (7-18); BUN/CREATININE RATIO 9.1 (5.4-32.0); CALCIUM 8.1 MG/DL (8.5-10.1); CHLORIDE 104 MMOL/L (99-107); CREATININE 0.99 MG/DL (0.60-1.10); GLUCOSE 98 MG/DL (70-104); LIPASE 79 U/L (73-393); PHOSPHORUS 2.8 MG/DL (2.3-4.5); POTASSIUM 3.6 MMOL/L (3.5-5.1); SODIUM 138 MMOL/L (135-145); TOTAL CARBON DIOXIDE 28.1 MMOL/L (24-32); TOTAL PROTEIN 5.8 G/DL (6.4-8.2); eGFR 75 ML/MIN
[2022-01-23 06:50] LABS: BASOPHILS # (AUTO) 0.1 X10'3 (0-0.2); BASOPHILS % (AUTO) 1.9 % (0-1); EOSINOPHILS # (AUTO) 0.2 X10'3 (0-0.9); EOSINOPHILS % (AUTO) 3.8 % (0-6); HEMATOCRIT 26.9 % (42.0-52.0); HEMOGLOBIN 8.8 g/dl (14.0-17.9); LYMPHOCYTES # (AUTO) 1.8 X10'3 (1.1-4.8); LYMPHOCYTES % (AUTO) 30.1 % (21-51); MEAN CORPUSCULAR HEMOGLOBIN 25.7 PG (27.0-31.0); MEAN CORPUSCULAR HGB CONC 32.8 g/dL (33.0-36.5); MEAN CORPUSCULAR VOLUME 78.3 FL (78-98); MEAN PLATELET VOLUME 9.5 FL (7.4-10.4); MONOCYTES # (AUTO) 1.1 X10'3 (0-0.9); MONOCYTES % (AUTO) 18.2 % (2-12); NEUTROPHILS # (AUTO) 2.8 X10'3 (1.8-7.7); PLATELET COUNT 188 X10'3 (140-440); RED BLOOD COUNT 3.44 X10'6 (4.70-6.10); RED CELL DISTRIBUTION WIDTH 18.4 % (11.5-14.5)
--- NOTE | 2022-01-23 07:06 | NUR ---
RE-MEDICATED WITH ATIVAN WHEN HE WOKE UP AND BECAME AGITATED. RESTING QUIETLY AT THIS TIME. REPORT TO ALYSON WOODRUFF
[2022-01-23] MEDS: LIDOcaine 5% patch TP SCH (08:00)
[2022-01-23] MEDS: K and/or MAG REPLACEMENT MC SCH ×2 (08:00→18:56)
[2022-01-23] MEDS: docusate sod 100mg capsule PO SCH ×2 (08:00→20:13)
[2022-01-23 08:27] LABS: TOTAL CELLS COUNTED 100
[2022-01-23 08:29] LABS: ANISOCYTOSIS 2+; ELLIPTOCYTES FEW; MICROCYTOSIS 1+; PLATELET ESTIMATE NORMAL; STOMATOCYTES FEW; TARGET CELLS FEW; TEAR DROP CELLS FEW
[2022-01-23 10:00] VITALS: BP 131/75
[2022-01-23] MEDS: multivitamins, therapeutics tablet PO SCH (10:15)
[2022-01-23] MEDS: apixaban 5mg tablet PO SCH ×2 (10:16→20:13)
--- NOTE | 2022-01-23 15:13 | NUR ---
Bladder scanned patients shows 177 ml's in bladder Contacting MD. Patient is S/L
--- NOTE | 2022-01-23 15:16 | NUR ---
PAGER ID: [phone] MESSAGE: China Black [phone] Re: Ilir [id number] bladder scanned patient shows 177 mls in bladder patient is is saline locked, not drinking very much Addendum: 01/23/22 at 1520 by China Jung RN Received orders for NS @ 70ml's/hr
[2022-01-23] MEDS: normal saline 1000ml 1,000 ML IV SCH (15:28)
[2022-01-23] MEDS ORDERED: PERFLUTREN PROTEIN-A MICROSPHR (Optison) 0.22 MG/ML 3ML VIAL IV PRN (16:25)
--- NOTE | 2022-01-23 18:32 | NUR ---
Problems reprioritized. Patient report given, questions answered & plan of care reviewed with Ana Maria Byers RN.
[2022-01-23 18:33] VITALS: BP 116/68
--- NOTE | 2022-01-23 18:56 | NUR ---
24 HR TELE UP AT 1600 PER TELE, BUT HAVE CONT'D TELE MONITORING PER ETOH PROTOCOL PATIENT IS IN ACTIVE WITHDRAWAL
[2022-01-23 22:00] VITALS: BP 130/72
[2022-01-24] VITALS (8 sets, daily range): BP systolic 74–153; BP diastolic 47–77
--- NOTE | 2022-01-24 05:16 | NUR ---
bladder scanned patient for 374. still has not voided.
[2022-01-24] MEDS: normal saline 1000ml 1,000 ML IV SCH ×2 (05:43→19:56)
[2022-01-24 06:21] LABS: HEMATOCRIT 26.5 % (42.0-52.0)
[2022-01-24 06:25] LABS: BASOPHILS # (AUTO) 0.1 X10'3 (0-0.2); BASOPHILS % (AUTO) 1.4 % (0-1); EOSINOPHILS # (AUTO) 0.2 X10'3 (0-0.9); EOSINOPHILS % (AUTO) 3.8 % (0-6); HEMOGLOBIN 8.6 g/dl (14.0-17.9); LYMPHOCYTES # (AUTO) 1.8 X10'3 (1.1-4.8); LYMPHOCYTES % (AUTO) 29.6 % (21-51); MEAN CORPUSCULAR HEMOGLOBIN 25.4 PG (27.0-31.0); MEAN CORPUSCULAR HGB CONC 32.5 g/dL (33.0-36.5); MEAN PLATELET VOLUME 9.1 FL (7.4-10.4); MONOCYTES # (AUTO) 1.3 X10'3 (0-0.9); MONOCYTES % (AUTO) 20.9 % (2-12); NEUTROPHILS # (AUTO) 2.6 X10'3 (1.8-7.7); NEUTROPHILS % (AUTO) 44.3 % (42-75); PLATELET COUNT 188 X10'3 (140-440); RED BLOOD COUNT 3.39 X10'6 (4.70-6.10); RED CELL DISTRIBUTION WIDTH 18.7 % (11.5-14.5)
--- NOTE | 2022-01-24 06:29 | NUR ---
Problems reprioritized. Patient report given, questions answered & plan of care reviewed with RANJAN Magana.
[2022-01-24 06:47] LABS: ALANINE AMINOTRANSFERASE 13 U/L (12-78); ALBUMIN 2.2 G/DL (3.4-5.0); ALBUMIN/GLOBULIN RATIO 0.7 (1.1-1.5); ALKALINE PHOSPHATASE 104 IU/L (46-116); ANION GAP 6 (8-16); ASPARTATE AMINO TRANSFERASE 37 U/L (10-37); BILIRUBIN,TOTAL 0.6 MG/DL (0.1-1.0); BLOOD UREA NITROGEN 8 MG/DL (7-18); BUN/CREATININE RATIO 9.6 (5.4-32.0); CALCIUM 7.8 MG/DL (8.5-10.1); CHLORIDE 107 MMOL/L (99-107); CREATININE 0.83 MG/DL (0.60-1.10); GLUCOSE 92 MG/DL (70-104); LIPASE 202 U/L (73-393); MAGNESIUM 1.8 MG/DL (1.5-2.4); PHOSPHORUS 2.9 MG/DL (2.3-4.5); POTASSIUM 3.4 MMOL/L (3.5-5.1); SODIUM 139 MMOL/L (135-145); TOTAL CARBON DIOXIDE 25.7 MMOL/L (24-32); TOTAL PROTEIN 5.5 G/DL (6.4-8.2); eGFR > 90 ML/MIN
--- NOTE | 2022-01-24 06:53 | NUR ---
Patient in room ORTHO 4009A. I have received report from Ana Maria Byers RN and had the opportunity to ask questions and assume patient care.
[2022-01-24] MEDS: K and/or MAG REPLACEMENT MC SCH ×2 (08:48→19:47)
[2022-01-24] MEDS: levoTHYROXINE 25mcg tablet PO SCH (08:55)
[2022-01-24] MEDS: multivitamins, therapeutics tablet PO SCH (08:55)
[2022-01-24] MEDS: docusate sod 100mg capsule PO SCH ×2 (08:55→19:26)
[2022-01-24] MEDS: apixaban 5mg tablet PO SCH ×2 (08:55→19:26)
[2022-01-24] MEDS: POTASSIUM BICARB 20meq eff tab 20 MEQ TABLET.EFF PO PRN ×3 (08:56→19:27)
[2022-01-24] MEDS: LIDOcaine 5% patch TP SCH (08:56)
[2022-01-24] MEDS: naltrexone 50mg tablet PO SCH (09:41)
--- NOTE | 2022-01-24 12:44 | NUR ---
PRESSURE ULCER EDUCATION: DEFINITION: A pressure ulcer is an area of skin that breaks down when you stay in one position too long. The constant pressure against the skin reduces the blood flow to that area and the affected tissue dies. CAUSES: "Being bedridden or in a wheelchair "Fragile skin "Having a chronic condition, such as diabetes or vascular disease "Inability to move certain parts of your body without assistance "Older age "Incontinence of urine or stool SYMPTOMS: "A reddened area that DOES NOT turn white when pressed on - this can be the beginning of a pressure ulcer "A blister, deep sore or a crater - these can be advanced pressure ulcers FIRST AID: "Relieve the pressure on this area "Keep the area clean and dry "Call your primary doctor if you see any of the above symptoms "DO NOT massage the area "DO NOT use a donut shaped or ring shaped pillow- these actually interfere with the blood flow and cause complications PREVENTION: "Check for pressure ulcers everyday "Change position at least every two hours to relieve pressure "Use items that help relieve pressure- pillows, sheepskin, foam padding, and powders. "Keep skin clean and dry "Eat healthy well balanced meals "Exercise daily IF YOU SEE ANY OF THESE SYMPTOMS WHILE IN THE HOSPITAL - TELL YOUR NURSE IMMEDIATELY. IF YOU SEE ANY OF THESE SYMPTOMS WHILE AT HOME OR HAVE ANY QUESTIONS OR CONCERNS ABOUT PRESSURE ULCERS - CALL YOUR PRIMARY DOCTOR IMMEDIATELY. Addendum: 01/24/22 at 1244 by Honey Dye LVN Amended: Links added.
[2022-01-24] MEDS: LORazepam 2 mg/ml vial IV PRN (13:10)
--- NOTE | 2022-01-24 13:16 | NUR ---
Paged Dr. Wheatley about patient going into a-fib with rvr, patient dose not look to be in any distress and ativan given, ekg done.
[2022-01-24] MEDS ORDERED: digoxin 250mcg/ml 2ml ampule IV ONE (13:30)
[2022-01-24] MEDS ORDERED: normal saline 1000ml 1,000 ML IV ONE (14:30)
[2022-01-24] MEDS: thiamine 100mg tablet PO SCH ×2 (14:36→20:35)
--- NOTE | 2022-01-24 14:46 | NUR ---
Adult protective services in with patient. Addendum: 01/24/22 at 1447 by Izzy Rocha RN wrong patient
[2022-01-24] MEDS: midodrine 5mg tablet PO SCH (16:30)
--- NOTE | 2022-01-24 16:51 | NUR ---
bladder scanned patient, patient has >600 in bladder will notify the doctor.
--- NOTE | 2022-01-24 16:57 | NUR ---
PAGER ID: [phone] MESSAGE: [id number] Dioni Hazel Patient has >600 in bladder and took him to the bathroom with no results. Transferring now. Izzy [phone]
--- NOTE | 2022-01-24 17:30 | NUR ---
pt arrived from ortho/neuro floor at 1725. pt is transferred her due to afib rvr. Pt's current rate is 80s-90s. Pt has not voided urine all during the shift on ortho/neuro. RANJAN Magana on ortho/neuro floor paged . Pt has NS infusing at 70ml/hr. Pt has multiple scattered bruises and scabs due to multiple falls at home during the last month. Pt lives alone. Pt seems confused when I ask questions. Pt unable to answer appropriately. Pt is very sleepy at this time. Will monitor.
--- NOTE | 2022-01-24 17:33 | NUR ---
Report to Jasmin WOODRUFF, patient transferred to [facility]. Received orders from doctor to place a ventura catheter, notified RN I would put the orders in.
[2022-01-24] MEDS: magnesium Cl slow-release 64mg tablet PO SCH (19:26)
[2022-01-24] MEDS: digoxin 250mcg/ml 2ml ampule IV SCH (19:34)
[2022-01-24] MEDS: HYDROcodone/acetaminophen 5mg/325mg tablet PO PRN (20:57)
[2022-01-25] VITALS (7 sets, daily range): BP systolic 102–159; BP diastolic 56–77
[2022-01-25] MEDS: digoxin 250mcg/ml 2ml ampule IV SCH (02:25)
[2022-01-25 06:32] LABS: BASOPHILS # (AUTO) 0.1 X10'3 (0-0.2); BASOPHILS % (AUTO) 1.4 % (0-1); EOSINOPHILS # (AUTO) 0.2 X10'3 (0-0.9); EOSINOPHILS % (AUTO) 1.9 % (0-6); HEMATOCRIT 26.9 % (42.0-52.0); HEMOGLOBIN 8.7 g/dl (14.0-17.9); LYMPHOCYTES # (AUTO) 1.6 X10'3 (1.1-4.8); LYMPHOCYTES % (AUTO) 19.9 % (21-51); MEAN CORPUSCULAR HEMOGLOBIN 25.2 PG (27.0-31.0); MEAN CORPUSCULAR HGB CONC 32.3 g/dL (33.0-36.5); MEAN CORPUSCULAR VOLUME 77.8 FL (78-98); MEAN PLATELET VOLUME 9.2 FL (7.4-10.4); MONOCYTES # (AUTO) 1.5 X10'3 (0-0.9); MONOCYTES % (AUTO) 19.1 % (2-12); NEUTROPHILS # (AUTO) 4.6 X10'3 (1.8-7.7); NEUTROPHILS % (AUTO) 57.7 % (42-75); PLATELET COUNT 186 X10'3 (140-440); RED BLOOD COUNT 3.45 X10'6 (4.70-6.10); RED CELL DISTRIBUTION WIDTH 19.1 % (11.5-14.5)
--- NOTE | 2022-01-25 07:00 | NUR ---
Patient in room PCU 3025. I have received report from Columba WOODRUFF and had the opportunity to ask questions and assume patient care.
[2022-01-25 07:10] LABS: ALANINE AMINOTRANSFERASE 16 U/L (12-78); ALBUMIN 2.1 G/DL (3.4-5.0); ALBUMIN/GLOBULIN RATIO 0.7 (1.1-1.5); ALKALINE PHOSPHATASE 107 IU/L (46-116); ANION GAP 8 (8-16); ASPARTATE AMINO TRANSFERASE 43 U/L (10-37); BILIRUBIN,TOTAL 0.5 MG/DL (0.1-1.0); BLOOD UREA NITROGEN 8 MG/DL (7-18); BUN/CREATININE RATIO 7.8 (5.4-32.0); CALCIUM 7.9 MG/DL (8.5-10.1); CHLORIDE 109 MMOL/L (99-107); CREATININE 1.02 MG/DL (0.60-1.10); GLUCOSE 93 MG/DL (70-104); MAGNESIUM 1.5 MG/DL (1.5-2.4); POTASSIUM 4.4 MMOL/L (3.5-5.1); SODIUM 142 MMOL/L (135-145); TOTAL CARBON DIOXIDE 25.2 MMOL/L (24-32); TOTAL PROTEIN 5.3 G/DL (6.4-8.2); eGFR 73 ML/MIN
[2022-01-25] MEDS: K and/or MAG REPLACEMENT MC SCH ×2 (08:00→20:00)
[2022-01-25] MEDS: LIDOcaine 5% patch TP SCH (08:13)
[2022-01-25] MEDS: magnesium Cl slow-release 64mg tablet PO SCH ×2 (08:14→20:26)
[2022-01-25] MEDS: multivitamins, therapeutics tablet PO SCH (08:14)
[2022-01-25] MEDS: docusate sod 100mg capsule PO SCH ×2 (08:14→20:29)
[2022-01-25] MEDS: thiamine 100mg tablet PO SCH ×3 (08:14→20:24)
[2022-01-25] MEDS: levoTHYROXINE 25mcg tablet PO SCH (08:14)
[2022-01-25] MEDS: midodrine 5mg tablet PO SCH ×3 (08:15→16:47)
[2022-01-25] MEDS: apixaban 5mg tablet PO SCH ×2 (08:15→20:23)
[2022-01-25] MEDS: potassium Cl 20 mEq SR tablet PO SCH (08:15)
--- NOTE | 2022-01-25 09:39 | NUR ---
Initial: Pt admitted w/ Afib, recurrent falls, and chronic alcoholism per EMR. Currently on Regular diet w/ variable intake, avg 45% x 7 meals partially meeting needs. Will provide smoothies/shakes w/ meals for additional calories/protein. Pt noted to be A&O x 2 and confused, receiving minimal assistance w/ meals. LBM 01/21 receiving routine colace. Will continue to monitor. Recs: 1. Continue Regular diet as tolerated; assist w/ meals 2. Smoothie WB, shake BIDLD 3. Bowel care per rx 4. Weekly wts Addendum: 01/25/22 at [address] Amended: Links added.
--- NOTE | 2022-01-25 09:45 | NUR ---
costume technician stated rhythm is now afib with RVR. Dr mclaughlin contacted, will continue to monitor
[2022-01-25] MEDS: naltrexone 50mg tablet PO SCH (12:45)
[2022-01-25] MEDS: normal saline 1000ml 1,000 ML IV SCH (12:47)
[2022-01-25 16:26] LABS: % IRON SATURATION 8 % (11-46); IRON 22 UG/DL (53-167); TOTAL IRON BINDING CAPACITY 265 UG/DL (259-388)
--- NOTE | 2022-01-25 18:17 | NUR ---
patient stable. report given to Columba WOODRUFF
[2022-01-25] MEDS: tamsulosin 0.4mg capsule PO SCH (20:22)
[2022-01-25] MEDS: linezolid 600mg tablet PO SCH (20:23)
[2022-01-25] MEDS: LORazepam 0.5 MG tablet PO SCH (20:24)
[2022-01-25] MEDS: oxybutynin 5mg tablet PO SCH (20:24)
[2022-01-25] MEDS: HYDROcodone/acetaminophen 5mg/325mg tablet PO PRN (23:31)
[2022-01-26] MEDS: ondansetron/PF 4mg/2ml inj IV PRN (00:19)
[2022-01-26] MEDS: normal saline 1000ml 1,000 ML IV SCH ×2 (00:32→09:28)
[2022-01-26] MEDS ORDERED: diazepam inj 5 MG/ML inj. IV PRN (02:50)
--- NOTE | 2022-01-26 06:28 | NUR ---
Patient in room PCU 3025. I have received report from jax WOODRUFF and had the opportunity to ask questions and assume patient care.
[2022-01-26 07:00] VITALS: BP 136/72
[2022-01-26 07:03] LABS: BASOPHILS # (AUTO) 0.1 X10'3 (0-0.2); EOSINOPHILS # (AUTO) 0.2 X10'3 (0-0.9); EOSINOPHILS % (AUTO) 1.8 % (0-6); HEMATOCRIT 27.8 % (42.0-52.0); HEMOGLOBIN 9.1 g/dl (14.0-17.9); LYMPHOCYTES # (AUTO) 1.9 X10'3 (1.1-4.8); LYMPHOCYTES % (AUTO) 20.1 % (21-51); MEAN CORPUSCULAR HEMOGLOBIN 25.7 PG (27.0-31.0); MEAN CORPUSCULAR HGB CONC 32.8 g/dL (33.0-36.5); MEAN CORPUSCULAR VOLUME 78.3 FL (78-98); MEAN PLATELET VOLUME 9.1 FL (7.4-10.4); MONOCYTES # (AUTO) 1.9 X10'3 (0-0.9); NEUTROPHILS # (AUTO) 5.3 X10'3 (1.8-7.7); NEUTROPHILS % (AUTO) 57.1 % (42-75); PLATELET COUNT 196 X10'3 (140-440); RED BLOOD COUNT 3.55 X10'6 (4.70-6.10); RED CELL DISTRIBUTION WIDTH 18.9 % (11.5-14.5); WHITE BLOOD COUNT 9.3 X10'3 (4.5-11.0)
[2022-01-26 07:27] LABS: ALANINE AMINOTRANSFERASE 16 U/L (12-78); ALBUMIN 2.2 G/DL (3.4-5.0); ALBUMIN/GLOBULIN RATIO 0.6 (1.1-1.5); ALKALINE PHOSPHATASE 111 IU/L (46-116); ANION GAP 9 (8-16); ASPARTATE AMINO TRANSFERASE 41 U/L (10-37); BILIRUBIN,TOTAL 0.4 MG/DL (0.1-1.0); BLOOD UREA NITROGEN 10 MG/DL (7-18); BUN/CREATININE RATIO 10.9 (5.4-32.0); CALCIUM 8.3 MG/DL (8.5-10.1); CHLORIDE 109 MMOL/L (99-107); CREATININE 0.92 MG/DL (0.60-1.10); GLUCOSE 94 MG/DL (70-104); POTASSIUM 4.6 MMOL/L (3.5-5.1); SODIUM 143 MMOL/L (135-145); TOTAL CARBON DIOXIDE 25.4 MMOL/L (24-32); TOTAL PROTEIN 5.7 G/DL (6.4-8.2); eGFR 82 ML/MIN
[2022-01-26] MEDS ORDERED: digoxin 250mcg/ml 2ml ampule IV SCH (08:00)
[2022-01-26] MEDS: K and/or MAG REPLACEMENT MC SCH ×2 (08:00→20:42)
[2022-01-26] MEDS ORDERED: digoxin 125mcg (0.125mg) tablet PO SCH (08:00)
--- NOTE | 2022-01-26 08:43 | NUR ---
Noted pt started on routine Zyvox. Per EMR pt A/O x 2, confused, forgetful, and resistive to care. Low tyramine nutrition therapy education deferred at this time. Will continue to follow. Addendum: 01/26/22 at [address] Amended: Links added.
[2022-01-26] MEDS: LIDOcaine 5% patch TP SCH (09:01)
[2022-01-26] MEDS: oxybutynin 5mg tablet PO SCH ×3 (09:01→20:32)
[2022-01-26] MEDS: potassium Cl 20 mEq SR tablet PO SCH (09:02)
[2022-01-26] MEDS: multivitamins, therapeutics tablet PO SCH (09:02)
[2022-01-26] MEDS: thiamine 100mg tablet PO SCH ×3 (09:02→20:41)
[2022-01-26] MEDS: linezolid 600mg tablet PO SCH ×2 (09:02→20:32)
[2022-01-26] MEDS: naltrexone 50mg tablet PO SCH (09:02)
[2022-01-26] MEDS: magnesium Cl slow-release 64mg tablet PO SCH ×2 (09:03→20:33)
[2022-01-26] MEDS: apixaban 5mg tablet PO SCH ×2 (09:03→20:33)
[2022-01-26] MEDS: docusate sod 100mg capsule PO SCH ×2 (09:03→20:33)
[2022-01-26] MEDS: LORazepam 0.5 MG tablet PO SCH ×2 (09:04→20:32)
[2022-01-26] MEDS: levoTHYROXINE 25mcg tablet PO SCH (09:08)
[2022-01-26] MEDS: midodrine 5mg tablet PO SCH ×3 (09:10→16:38)
[2022-01-26 11:00] VITALS: BP 95/55
[2022-01-26] MEDS ORDERED: MIDO5TAB4 PO (13:15)
[2022-01-26] MEDS ORDERED: LAN0.125T PO (13:15)
[2022-01-26] MEDS ORDERED: LEVO25TA7 PO (13:15)
[2022-01-26] MEDS ORDERED: MULT-25 PO (13:15)
[2022-01-26] MEDS ORDERED: LINE600T14 PO (13:15)
[2022-01-26] MEDS ORDERED: FOLI1TAB27 PO (13:15)
[2022-01-26] MEDS ORDERED: thiamine tablet PO (13:15)
[2022-01-26] MEDS ORDERED: OLAN2.5T28 PO (13:15)
[2022-01-26] MEDS ORDERED: OXYB5TAB16 PO (13:15)
--- NOTE | 2022-01-26 15:47 | NUR ---
patient confused and restless c/o much pain with urinating. penis swollen and painful on distal shaft . Dr lee aware. Order given to remove catheter. Will monitor patient for voiding . Daughter called to refer patient to mitch Ruffin . staff training and development manager contacted with regards this.
[2022-01-26] MEDS: ascorbic acid 500mg tablet PO SCH (16:38)
[2022-01-26] MEDS: HYDROcodone/acetaminophen 5mg/325mg tablet PO PRN (18:05)
[2022-01-26 18:30] VITALS: BP 106/64
--- NOTE | 2022-01-26 18:36 | NUR ---
patient voided small amount in toilet pink tinged. Bladder scanned post void 57mls observed. confused , at times. report given to Felecia WOODRUFF
--- NOTE | 2022-01-26 19:11 | NUR ---
Patient in room PCU 2961P. I have received report from Waleska WOODRUFF and had the opportunity to ask questions and assume patient care. Pt in bed eating dinner. Family members at bedside asking about dicharge plans.
[2022-01-26] MEDS: tamsulosin 0.4mg capsule PO SCH (20:32)
[2022-01-26] MEDS: ferrous sulfate ER tablet 140 MG TABLET.ER PO SCH (20:33)
[2022-01-26] MEDS: NYSTATIN CREAM - 30GM TUBE TP SCH (20:34)
[2022-01-26] MEDS ORDERED: OLANZapine 2.5MG tablet PO SCH (21:00)
[2022-01-26 22:30] VITALS: BP 102/48
[2022-01-27 02:00] VITALS: BP 106/52
[2022-01-27] MEDS: normal saline 1000ml 1,000 ML IV SCH (05:32)
[2022-01-27 06:00] VITALS: BP 97/64
--- NOTE | 2022-01-27 06:17 | NUR ---
Problems reprioritized. Patient report given, questions answered & plan of care reviewed with Amanda WOODRUFF
[2022-01-27] MEDS: docusate sod 100mg capsule PO SCH (07:47)
[2022-01-27] MEDS: LORazepam 0.5 MG tablet PO SCH (07:47)
[2022-01-27] MEDS: multivitamins, therapeutics tablet PO SCH (07:47)
[2022-01-27] MEDS: apixaban 5mg tablet PO SCH (07:47)
[2022-01-27] MEDS: midodrine 5mg tablet PO SCH (07:48)
[2022-01-27] MEDS: magnesium Cl slow-release 64mg tablet PO SCH (07:48)
[2022-01-27] MEDS: ferrous sulfate ER tablet 140 MG TABLET.ER PO SCH (07:48)
[2022-01-27] MEDS: levoTHYROXINE 25mcg tablet PO SCH (07:48)
[2022-01-27] MEDS: thiamine 100mg tablet PO SCH (07:48)
[2022-01-27] MEDS: potassium Cl 20 mEq SR tablet PO SCH (07:48)
[2022-01-27] MEDS: linezolid 600mg tablet PO SCH (07:48)
[2022-01-27] MEDS: oxybutynin 5mg tablet PO SCH (07:48)
[2022-01-27] MEDS: LIDOcaine 5% patch TP SCH (07:49)
[2022-01-27] MEDS ORDERED: thiamine 100mg tablet PO SCH (08:00)
[2022-01-27] MEDS ORDERED: folic acid 1mg tablet PO SCH (08:00)
[2022-01-27] MEDS: NYSTATIN CREAM - 30GM TUBE TP SCH (08:52)
[2022-01-27] MEDS: ascorbic acid 500mg tablet PO SCH (08:57)
[2022-01-27] MEDS: ondansetron/PF 4mg/2ml inj IV PRN (08:57)
--- NOTE | 2022-01-27 11:16 | NUR ---
transport came to get patient he left with a 20 PIV to the right ac per MD daughter was present answered all questions. Patient belongings went with patient. Medications from pharmacy went home with daughter she signed saying she took them home.
== END 2022-01-27 10:52 | DRG 871 ==
LOC: ER 18:09 → ED HOLD 22:36 → ORTHO 4S 01-22 15:16 → PCU 3S 01-24 16:30
PROVIDERS: ADMIT Internal Medicine; ATTEND Internal Medicine
PROC: 0T9B70Z Drainage of Bladder with Drainage Device, Via Natural or Artificial Opening (ICD-10-PCS; principal; 2022-01-24)
DX: A41.9 Sepsis, unspecified organism (principal); N17.0 Acute kidney failure with tubular necrosis; I48.11 Longstanding persistent atrial fibrillation; N13.8 Other obstructive and reflux uropathy; R29.6 Repeated falls; D50.9 Iron deficiency anemia, unspecified; I95.9 Hypotension, unspecified; W18.39XA Other fall on same level, initial encounter; R00.1 Bradycardia, unspecified; G31.2 Degeneration of nervous system due to alcohol; F10.20 Alcohol dependence, uncomplicated; D63.8 Anemia in other chronic diseases classified elsewhere; R33.9 Retention of urine, unspecified; E83.42 Hypomagnesemia; N40.1 Benign prostatic hyperplasia with lower urinary tract symptoms; E03.9 Hypothyroidism, unspecified; E87.6 Hypokalemia; I50.9 Heart failure, unspecified; K70.9 Alcoholic liver disease, unspecified; N18.9 Chronic kidney disease, unspecified; Z79.01 Long term (current) use of anticoagulants; Z90.49 Acquired absence of other specified parts of digestive tract; Z79.899 Other long term (current) drug therapy; Y93.89 Activity, other specified; Y92.89 Other specified places as the place of occurrence of the external cause; Y99.8 Other external cause status
CPT/HCPCS: 36415; 70450; 70553; 71045; 71260; 72125; 73130; 74177; 80053; 80162; 80320; 81003; 82140; 83540; 83550; 83605; 83690; 83735; 84100; 84145; 84443; 84484; 85007; 85025; 85610; 85651; 85730; 87040; 87077; 87081; 87186; 93005; 93306; 96361; 96374; 97110; 97161; 97530; 97535; 99284; 99285; A4314; A5200; A6213; A6250; A6449; G0378; J1160; J2060; J2405; J3360; J3411; J3475; J7030

== ENCOUNTER 2022-03-21 06:47 | Day surgery (SDC) | payer MEDICARE ==
[~2022-03-21] VITALS: Ht 172.7 cm; Wt 60.1 kg
[~2022-03-21 06:47] MED LIST changes: -CARV6.253 PO; +FOLI1TAB27 PO; +LAN0.125T PO; +LEVO25TA7 PO; +LINE600T14 PO; +MIDO5TAB4 PO; +MULT-25 PO; +NALT50TA PO; +OLAN2.5T28 PO; +OXYB5TAB16 PO; +thiamine tablet PO
[2022-03-21 07:09] VITALS: BP 118/76
[2022-03-21] MEDS ORDERED: albumin 25% 100mL bottle x 1 IV PRN (07:15)
[2022-03-21] MEDS ORDERED: NO HOME MEDS (08:09)
[2022-03-21] MEDS ORDERED: LIDOcaine 1% 30ml preserv. free vial SQ STA (08:10)
[2022-03-21 08:50] VITALS: BP 108/75
[2022-03-21 09:09] VITALS: BP 116/80
[2022-03-21 09:15] VITALS: BP 116/80
[2022-03-21 09:30] VITALS: BP 114/73
--- NOTE | 2022-03-21 09:35 | NUR ---
technology development intern is at bedside.
== END 2022-03-21 09:40 | disposition home or self-care (01) ==
LOC: SSTAY O 06:47
PROVIDERS: ATTEND Radiology Vascular & Interventional Radiology
DX: R18.8 Other ascites (principal); K74.60 Unspecified cirrhosis of liver; Z98.890 Other specified postprocedural states; Z90.49 Acquired absence of other specified parts of digestive tract; Z79.899 Other long term (current) drug therapy
CPT/HCPCS: 49083; 76700; J3490; A6258; A6449

== ENCOUNTER 2022-03-28 08:38 | Day surgery (SDC) | payer MEDICARE ==
[~2022-03-28] VITALS: Ht 172.7 cm; Wt 56.6 kg
[~2022-03-28 08:38] MED LIST changes: -APIX5TAB3 PO; +FERR324T4 PO; +FLO0.4C PO; +FURO20TA4 PO; +LACT10SO32 PO; -LAN0.125T PO; -LEVO25TA7 PO; -LIDO1ADH58 TOP; -LINE600T14 PO; -MIDO5TAB4 PO; -MULT-25 PO; +MULT-620 PO; -NALT50TA PO; -OLAN2.5T28 PO; -OXYB5TAB16 PO; +PANT40TA54 PO; -thiamine tablet PO
[2022-03-28] MEDS ORDERED: LIDOcaine 1% 30ml preserv. free vial SQ STA (09:03)
[2022-03-28] MEDS ORDERED: ASCO500C17 PO (09:06)
[2022-03-28] MEDS ORDERED: MULT-1085 PO (09:06)
[2022-03-28] MEDS ORDERED: LACT10SO67 (09:06)
[2022-03-28] MEDS ORDERED: FERR325T7 PO (09:06)
[2022-03-28] MEDS ORDERED: albumin 25% 100mL bottle x 1 IV PRN (09:10)
[2022-03-28 09:16] VITALS: BP 109/56
[2022-03-28 09:20] VITALS: BP 109/56
[2022-03-28 09:58] VITALS: BP 104/64
== END 2022-03-28 10:10 | disposition home or self-care (01) ==
LOC: SSTAY O 08:38
PROVIDERS: ATTEND Radiology Diagnostic Radiology
DX: R18.8 Other ascites (principal); K74.60 Unspecified cirrhosis of liver; Z90.49 Acquired absence of other specified parts of digestive tract; Z98.890 Other specified postprocedural states; Z79.899 Other long term (current) drug therapy
CPT/HCPCS: 76705; J7030; A6258; A6449

== ENCOUNTER 2022-04-04 06:09 | Day surgery (SDC) | payer MEDICARE ==
[~2022-04-04] VITALS: Ht 172.7 cm; Wt 57.0 kg
[~2022-04-04 06:09] MED LIST changes: +ASCO500C17 PO; +FERR325T7 PO; +LACT10SO67 PO; +MULT-1085 PO
[2022-04-04] MEDS ORDERED: albumin 25% 100mL bottle x 1 IV PRN (06:45)
[2022-04-04] MEDS ORDERED: APIX5TAB3 PO (06:59)
[2022-04-04] MEDS ORDERED: NALT50TA PO (06:59)
[2022-04-04 07:09] VITALS: BP 124/74
== END 2022-04-04 09:05 | disposition home or self-care (01) ==
LOC: SSTAY O 06:09
PROVIDERS: ATTEND Radiology Vascular & Interventional Radiology
DX: R18.8 Other ascites (principal); K74.60 Unspecified cirrhosis of liver; Z90.49 Acquired absence of other specified parts of digestive tract; Z98.890 Other specified postprocedural states; Z79.899 Other long term (current) drug therapy
CPT/HCPCS: 76705

== ENCOUNTER 2022-04-18 15:57 | Emergency (ER) | payer MEDICARE ==
[~2022-04-18] VITALS: Ht 172.7 cm; Wt 57.0 kg
[~2022-04-18 15:57] MED LIST changes: -FERR324T4 PO; -FERR325T7 PO; -FURO20TA4 PO; -LACT10SO32 PO; -MULT-620 PO; -PANT40TA54 PO
[2022-04-18 16:04] VITALS: BP 136/89
[2022-04-18 17:01] LABS: BASOPHILS # (AUTO) 0.1 X10'3 (0-0.2); BASOPHILS % (AUTO) 1.5 % (0-1); EOSINOPHILS # (AUTO) 0.1 X10'3 (0-0.9); EOSINOPHILS % (AUTO) 1.7 % (0-6); HEMATOCRIT 35.2 % (42.0-52.0); HEMOGLOBIN 11.2 g/dl (14.0-17.9); LYMPHOCYTES # (AUTO) 2.2 X10'3 (1.1-4.8); LYMPHOCYTES % (AUTO) 29.6 % (21-51); MEAN CORPUSCULAR HEMOGLOBIN 27.2 PG (27.0-31.0); MEAN CORPUSCULAR HGB CONC 31.9 g/dL (33.0-36.5); MEAN CORPUSCULAR VOLUME 85.3 FL (78-98); MEAN PLATELET VOLUME 9.3 FL (7.4-10.4); MONOCYTES # (AUTO) 1.4 X10'3 (0-0.9); MONOCYTES % (AUTO) 18.1 % (2-12); NEUTROPHILS # (AUTO) 3.7 X10'3 (1.8-7.7); NEUTROPHILS % (AUTO) 49.1 % (42-75); PLATELET COUNT 436 X10'3 (140-440); RED BLOOD COUNT 4.12 X10'6 (4.70-6.10); RED CELL DISTRIBUTION WIDTH 19.4 % (11.5-14.5); WHITE BLOOD COUNT 7.5 X10'3 (4.5-11.0)
[2022-04-18 17:35] LABS: ALANINE AMINOTRANSFERASE 34 U/L (12-78); ALBUMIN 3.5 G/DL (3.4-5.0); ALBUMIN/GLOBULIN RATIO 0.8 (1.1-1.5); ALKALINE PHOSPHATASE 151 IU/L (46-116); ANION GAP 10 (8-16); ASPARTATE AMINO TRANSFERASE 44 U/L (10-37); BILIRUBIN,TOTAL 0.6 MG/DL (0.1-1.0); BLOOD UREA NITROGEN 9 MG/DL (7-18); CALCIUM 9.1 MG/DL (8.5-10.1); CHLORIDE 101 MMOL/L (99-107); GLUCOSE 84 MG/DL (70-104); LIPASE 150 U/L (73-393); POTASSIUM 3.9 MMOL/L (3.5-5.1); SODIUM 135 MMOL/L (135-145); TOTAL CARBON DIOXIDE 24.1 MMOL/L (24-32); TOTAL PROTEIN 7.8 G/DL (6.4-8.2); eGFR 84 ML/MIN
[2022-04-18 18:31] LABS: ANISOCYTOSIS 2+; PLATELET ESTIMATE NORMAL; TOTAL CELLS COUNTED 100
== END 2022-04-19 01:30 | disposition left against medical advice (07) ==
LOC: ER 15:57
DX: R10.9 Unspecified abdominal pain (principal); Z53.21 Procedure and treatment not carried out due to patient leaving prior to being seen by health care provider
CPT/HCPCS: 36415; 74018; 80053; 83690; 85007; 85025

== ENCOUNTER 2022-09-04 03:33 | Emergency (ER) | payer MEDICARE ==
[~2022-09-04] VITALS: Ht 172.7 cm; Wt 59.1 kg
--- NOTE | 2022-09-04 05:29 | NUR ---
PT AMBULATED TO ROOM 8 SLOW STEADY GAIT NOTED GUARDING WITH MOVEMENTS. RECIEVED REPORT ASSUMING CARE OF PT.
[2022-09-04 05:50] LABS: BASOPHILS # (AUTO) 0.1 X10'3 (0-0.2); BASOPHILS % (AUTO) 1.4 % (0-1); EOSINOPHILS # (AUTO) 0.3 X10'3 (0-0.9); HEMATOCRIT 37.9 % (42.0-52.0); HEMOGLOBIN 11.9 g/dl (14.0-17.9); LYMPHOCYTES # (AUTO) 1.7 X10'3 (1.1-4.8); MEAN CORPUSCULAR HEMOGLOBIN 24.1 PG (27.0-31.0); MEAN CORPUSCULAR HGB CONC 31.6 g/dL (33.0-36.5); MEAN CORPUSCULAR VOLUME 76.4 FL (78-98); MEAN PLATELET VOLUME 9.8 FL (7.4-10.4); MONOCYTES # (AUTO) 1.7 X10'3 (0-0.9); MONOCYTES % (AUTO) 19.6 % (2-12); NEUTROPHILS # (AUTO) 4.9 X10'3 (1.8-7.7); PLATELET COUNT 217 X10'3 (140-440); RED BLOOD COUNT 4.95 X10'6 (4.70-6.10); RED CELL DISTRIBUTION WIDTH 16.5 % (11.5-14.5); WHITE BLOOD COUNT 8.7 X10'3 (4.5-11.0)
[2022-09-04 05:58] LABS: ALANINE AMINOTRANSFERASE 17 U/L (12-78); ALBUMIN 3.7 G/DL (3.4-5.0); ALBUMIN/GLOBULIN RATIO 0.9 (1.1-1.5); ALKALINE PHOSPHATASE 95 IU/L (46-116); ANION GAP 9 (8-16); ASPARTATE AMINO TRANSFERASE 36 U/L (10-37); BILIRUBIN,TOTAL 0.6 MG/DL (0.1-1.0); BLOOD UREA NITROGEN 17 MG/DL (7-18); BUN/CREATININE RATIO 17.9 (5.4-32.0); CALCIUM 9.1 MG/DL (8.5-10.1); CHLORIDE 100 MMOL/L (99-107); CREATININE 0.95 MG/DL (0.60-1.10); GLUCOSE 106 MG/DL (70-104); LIPASE 144 U/L (73-393); POTASSIUM 4.4 MMOL/L (3.5-5.1); SODIUM 134 MMOL/L (135-145); TOTAL CARBON DIOXIDE 24.9 MMOL/L (24-32); TOTAL PROTEIN 7.6 G/DL (6.4-8.2); eGFR 79 ML/MIN
--- NOTE | 2022-09-04 06:20 | NUR ---
ENDORSING CARE OF PT TO KATHRYN WOODRUFF REPORT GIVEN
[2022-09-04] MEDS ORDERED: iohexol 300mg/ml 100ml inj. ONE (06:50)
[2022-09-04 07:28] LABS: ANISOCYTOSIS 1+; PLATELET ESTIMATE NORMAL
[2022-09-04 07:29] LABS: ELLIPTOCYTES FEW; MICROCYTOSIS 1+
[2022-09-04 07:30] LABS: HYPOCHROMASIA 1+
[2022-09-04 09:05] VITALS: BP 149/94
[2022-09-04 09:19] LABS: CLARITY,URINE SLIGHTLY CLOUDY (Clear); COLOR,URINE YELLOW (Yellow); GLUCOSE, URINE NEGATIVE (Neg); KETONES,URINE NEGATIVE (Neg); LEUKOCYTE ESTERASE ,URINE MODERATE (Neg); NITRITES, URINE NEGATIVE (Neg); OCCULT BLOOD,URINE NEGATIVE (Neg); PROTEIN,URINE NEGATIVE (Neg); UROBILINOGEN,URINE 0.2 E.U/dL (0.2-1.0)
[2022-09-04 09:24] LABS: UA COLLECTION TYPE CLN CATCH MIDSTREAM
[2022-09-04 09:25] LABS: BACTERIA,URINE FEW /HPF (Neg); RBC,URINE 0-2 /HPF (0-2); SQUAMOUS EPITHELIAL CELL,UR FEW /LPF (FEW)
== END 2022-09-04 09:35 | disposition home or self-care (01) ==
LOC: ER 03:34
DX: R10.9 Unspecified abdominal pain (principal); R18.8 Other ascites; Z90.49 Acquired absence of other specified parts of digestive tract; Z79.899 Other long term (current) drug therapy
CPT/HCPCS: 36415; 74177; 80053; 81001; 83690; 85008; 85025; 87088; 99285; J3490; Q9967

== ENCOUNTER 2022-09-17 19:13 | Emergency (ER) | payer MEDICARE ==
[~2022-09-17] VITALS: Ht 172.7 cm; Wt 59.1 kg
[2022-09-17 21:17] LABS: CLARITY,URINE CLEAR (Clear); COLOR,URINE YELLOW (Yellow); GLUCOSE, URINE NEGATIVE (Neg); KETONES,URINE NEGATIVE (Neg); LEUKOCYTE ESTERASE ,URINE NEGATIVE (Neg); NITRITES, URINE NEGATIVE (Neg); OCCULT BLOOD,URINE NEGATIVE (Neg); PH,URINE 5.5 (4.8-8.0); PROTEIN,URINE NEGATIVE (Neg); UROBILINOGEN,URINE 0.2 E.U/dL (0.2-1.0)
[2022-09-17 21:28] LABS: UA COLLECTION TYPE NON-SPECIFIED
[2022-09-17 21:34] LABS: EOSINOPHILS # (AUTO) 0.2 X10'3 (0-0.9); LYMPHOCYTES # (AUTO) 2.6 X10'3 (1.1-4.8); RED CELL DISTRIBUTION WIDTH 17.1 % (11.5-14.5)
[2022-09-17 21:35] LABS: BASOPHILS # (AUTO) 0.1 X10'3 (0-0.2); BASOPHILS % (AUTO) 1.3 % (0-1); EOSINOPHILS % (AUTO) 2.8 % (0-6); HEMATOCRIT 34.2 % (42.0-52.0); LYMPHOCYTES % (AUTO) 35.6 % (21-51); MEAN CORPUSCULAR HGB CONC 32.1 g/dL (33.0-36.5); MEAN CORPUSCULAR VOLUME 74.8 FL (78-98); MEAN PLATELET VOLUME 8.4 FL (7.4-10.4); MONOCYTES % (AUTO) 13.2 % (2-12); NEUTROPHILS # (AUTO) 3.5 X10'3 (1.8-7.7); NEUTROPHILS % (AUTO) 47.1 % (42-75); PLATELET COUNT 284 X10'3 (140-440); RED BLOOD COUNT 4.57 X10'6 (4.70-6.10); WHITE BLOOD COUNT 7.4 X10'3 (4.5-11.0)
[2022-09-17 21:44] LABS: ALANINE AMINOTRANSFERASE 15 U/L (12-78); ALBUMIN 3.3 G/DL (3.4-5.0); ALKALINE PHOSPHATASE 99 IU/L (46-116); ANION GAP 8 (8-16); ASPARTATE AMINO TRANSFERASE 20 U/L (10-37); BILIRUBIN,TOTAL 0.3 MG/DL (0.1-1.0); BLOOD UREA NITROGEN 13 MG/DL (7-18); BUN/CREATININE RATIO 13.3 (10.0-20.0); CALCIUM 8.2 MG/DL (8.5-10.1); CHLORIDE 99 MMOL/L (99-107); CREATININE 0.98 MG/DL (0.60-1.10); ETHANOL 0.117 GM/DL (0.0-0.010); GLUCOSE 76 MG/DL (70-104); POTASSIUM 3.9 MMOL/L (3.5-5.1); SODIUM 133 MMOL/L (135-145); TOTAL CARBON DIOXIDE 26.1 MMOL/L (24-32); TOTAL PROTEIN 6.7 G/DL (6.4-8.2); eGFR 76 ML/MIN
[2022-09-17 21:45] LABS: URINE AMPHETAMINE SCREEN NEGATIVE (Neg); URINE BARBITUATE SCREEN NEGATIVE (Neg); URINE BENZODIAZEPINES SCREEN NEGATIVE (Neg); URINE COCAINE SCREEN NEGATIVE (Neg); URINE METHADONE SCREEN NEGATIVE (Neg); URINE OPIATE SCREEN NEGATIVE (Neg); URINE PHENCYCLIDINE SCREEN NEGATIVE (Neg)
[2022-09-17 21:46] LABS: URINE CANNABINOID SCREEN NEGATIVE (Neg)
[2022-09-17 22:00] VITALS: BP 98/51
== END 2022-09-18 00:29 | disposition home or self-care (01) ==
LOC: ER 19:14
DX: F10.920 Alcohol use, unspecified with intoxication, uncomplicated (principal); K21.9 Gastro-esophageal reflux disease without esophagitis; Z90.49 Acquired absence of other specified parts of digestive tract; Z79.899 Other long term (current) drug therapy
CPT/HCPCS: 36415; 80053; 80305; 80320; 81003; 82140; 85025; 99283

== ENCOUNTER 2022-11-09 16:34 | Emergency (ER) | payer MEDICARE ==
[~2022-11-09] VITALS: Ht 172.7 cm; Wt 64.5 kg
[2022-11-09] MEDS ORDERED: metoprolol tartrate 1mg/ml inj IV ONE (16:55)
[2022-11-09 17:04] LABS: BASOPHILS # (AUTO) 0.1 X10'3 (0-0.2); EOSINOPHILS # (AUTO) 0.2 X10'3 (0-0.9); EOSINOPHILS % (AUTO) 1.8 % (0-6); HEMATOCRIT 34.2 % (42.0-52.0); HEMOGLOBIN 10.8 g/dl (14.0-17.9); LYMPHOCYTES # (AUTO) 2.6 X10'3 (1.1-4.8); LYMPHOCYTES % (AUTO) 26.1 % (21-51); MEAN CORPUSCULAR HEMOGLOBIN 22.8 PG (27.0-31.0); MEAN CORPUSCULAR HGB CONC 31.5 g/dL (33.0-36.5); MEAN CORPUSCULAR VOLUME 72.6 FL (78-98); MEAN PLATELET VOLUME 8.4 FL (7.4-10.4); MONOCYTES # (AUTO) 1.5 X10'3 (0-0.9); MONOCYTES % (AUTO) 15.8 % (2-12); NEUTROPHILS # (AUTO) 5.4 X10'3 (1.8-7.7); NEUTROPHILS % (AUTO) 55.3 % (42-75); PLATELET COUNT 275 X10'3 (140-440); RED BLOOD COUNT 4.71 X10'6 (4.70-6.10); RED CELL DISTRIBUTION WIDTH 18.9 % (11.5-14.5); WHITE BLOOD COUNT 9.8 X10'3 (4.5-11.0)
[2022-11-09 17:14] LABS: ALANINE AMINOTRANSFERASE 23 U/L (12-78); ALBUMIN 3.4 G/DL (3.4-5.0); ALKALINE PHOSPHATASE 103 IU/L (46-116); ANION GAP 10 (8-16); ASPARTATE AMINO TRANSFERASE 28 U/L (10-37); BILIRUBIN,TOTAL 1.1 MG/DL (0.1-1.0); BLOOD UREA NITROGEN 18 MG/DL (7-18); BUN/CREATININE RATIO 17.1 (10.0-20.0); CALCIUM 8.7 MG/DL (8.5-10.1); CHLORIDE 97 MMOL/L (99-107); CREATININE 1.05 MG/DL (0.60-1.10); GLUCOSE 95 MG/DL (70-104); POTASSIUM 4.1 MMOL/L (3.5-5.1); SODIUM 132 MMOL/L (135-145); TOTAL CARBON DIOXIDE 24.8 MMOL/L (24-32); TOTAL PROTEIN 6.8 G/DL (6.4-8.2); eGFR 70 ML/MIN
[2022-11-09 17:17] LABS: D-DIMER 0.37 MG/L FEU (0-0.50)
[2022-11-09 17:45] LABS: PLATELET ESTIMATE NORMAL; TOTAL CELLS COUNTED 100
[2022-11-09 17:46] LABS: ANISOCYTOSIS 2+; HYPOCHROMASIA 1+; MICROCYTOSIS 1+; POIKILOCYTOSIS 1+
[2022-11-09 19:31] VITALS: BP 164/101
== END 2022-11-09 19:35 | disposition home or self-care (01) ==
LOC: ER 16:34
DX: R07.9 Chest pain, unspecified (principal); K21.9 Gastro-esophageal reflux disease without esophagitis; I51.9 Heart disease, unspecified; Z79.899 Other long term (current) drug therapy; Z79.1 Long term (current) use of non-steroidal anti-inflammatories (NSAID); Z90.49 Acquired absence of other specified parts of digestive tract
CPT/HCPCS: 36415; 71045; 80053; 83880; 84484; 85007; 85025; 85379; 93005; 96374; 99285; J3490